=== PATIENT | female | born 1960 | race Caucasian/White ===

== ENCOUNTER → 2016-12-02 | Outpatient (CLI) | payer OTHER | END | disposition home or self-care (01) | LOC: C.LABSPEC 14:03 | PROVIDERS: ATTEND Physician Assistant | DX: N89.8 Other specified noninflammatory disorders of vagina (principal) ==

== ENCOUNTER → 2016-12-30 | Outpatient (CLI) | payer OTHER | END | disposition home or self-care (01) | LOC: C.PAPS 10:18 | PROVIDERS: ATTEND Obstetrics & Gynecology | DX: Z12.4 Encounter for screening for malignant neoplasm of cervix (principal); R87.616 Satisfactory cervical smear but lacking transformation zone ==

== ENCOUNTER 2017-10-14 10:17 | Observation (INO) | payer OTHER ==
[2017-10-14] VITALS (14 sets, daily range): BP systolic 99–146; BP diastolic 46–84; PULSE 67–90; TEMP 36.4–36.8; O2SAT 100; Ht 149.9 cm; Wt 48.0 kg
[~2017-10-14] VITALS: Ht 149.9 cm; Wt 48.0 kg
[2017-10-14] MEDS ORDERED: ONDANSETRON INJ 2 MG/ML 2 ML VIAL ONE ×3 (10:25→19:49)
[2017-10-14] MEDS ORDERED: MoRPHine SULFATE 10 MG/ML CARP/VIAL ONE (10:25)
[2017-10-14] MEDS ORDERED: KETOROLAC TROMETHAMINE 60 MG/2 ML VIAL IV STA (11:04)
[2017-10-14] MEDS ORDERED: ONDANSETRON INJ 2 MG/ML 2 ML VIAL IV STA (12:05)
[2017-10-14] MEDS ORDERED: HYDROmorphone INJ 0.5 MG/0.5 ML SYR IV STA (12:05)
--- NOTE | 2017-10-14 12:26 | DIAGNOSTIC IMAGING REPORT ---
R TIBIA/FIBULA 2 VIEWS ROUTINE, R FEMUR 2 VIEWS ROUTINE, R KNEE 1 OR 2 VIEWS ROUTINE HISTORY: 57 years-old Female fall previous surgery on that acute right leg pain status post fall COMPARISON: Pelvis radiograph of same day TECHNIQUE: 1 view of the right femur, 1 view of the right knee and 2 views of the right tibia and fibula FINDINGS: FEMUR: Bones appear mildly demineralized. Moderate general changes of the right hip. Comminuted displaced fracture of the distal femur is only partially imaged. KNEE: Acute comminuted displaced and angulated fracture of the distal femoral metaphysis is noted with apex volar angulation of 41 degrees, displacement posteriorly of 11 mm and apposition of fracture fragments of 2.6 cm. Moderate soft tissue swelling with large joint effusion. Degenerative changes about the knee are seen. Study is limited secondary to single lateral projection. TIBIA/FIBULA: Plate and screw fusion hardware of the proximal tibia is noted without definite acute fracture or dislocation. Study is limited on this single view only. IMPRESSION: 1. Limited study with only lateral views of the right lower extremity obtained. 2. Comminuted, angulated and displaced fracture of the distal femoral metaphysis as above. Moderate associated soft tissue swelling with large joint effusion. 3. Osteopenic appearance of the bones. The above report was generated using voice recognition software. It may contain grammatical, syntax or spelling errors. Electronically signed by: Peter Khalil M.D. 10/14/2017 12:25 PM Dictated Date/Time: 10/14/2017 12:20 PM
--- NOTE | 2017-10-14 12:26 | DIAGNOSTIC IMAGING REPORT ---
PELVIS 1 OR 2 VIEW ROUTINE CLINICAL HISTORY: Pelvic pain status post trauma COMPARISON STUDY: May 2010 FINDINGS: The study is markedly rotated. No fractures are visualized the provided projection. IMPRESSION: Markedly limited study from a positioning standpoint. No fractures are visualized. Electronically signed by: Carlos Carroll M.D. 10/14/2017 12:25 PM Dictated Date/Time: 10/14/2017 12:25 PM
[2017-10-14 13:40] LABS: BASO % 0.1 %; BASO ABS # 0.01 K/uL (0-0.2); EOS % 0.1 %; EOS ABS # 0.01 K/uL (0-0.5); HEMATOCRIT 37.5 % (37-47); HEMOGLOBIN 12.8 g/dL (12.0-16.0); IG# 0.06 K/uL (0.00-0.02); LYMPH % 5.1 %; LYMPH ABS # 0.77 K/uL (1.2-3.4); MEAN CELL VOLUME 92.1 fL (80-100); MEAN CORPUSCULAR HEMOGLOBIN 31.4 pg (25-34); MEAN CORPUSCULAR HGB CONC 34.1 g/dl (32-36); MONO % 3.8 %; MONO ABS # 0.57 K/uL (0.11-0.59); NEUT % 90.5 %; NEUT ABS # 13.63 K/uL (1.4-6.5); PLATELET COUNT 195 K/uL (130-400); RED CELL DISTRIBUTION WIDTH CV 12.4 % (11.5-14.5); RED CELL DISTRIBUTION WIDTH SD 42.1 fL (36.4-46.3); WHITE BLOOD COUNT 15.05 K/uL (4.8-10.8)
[2017-10-14 13:48] LABS: PTT PATIENT 23.8 SECONDS (21.0-31.0)
[2017-10-14] MEDS ORDERED: MoRPHine SULFATE 4 MG/ML 1 ML CARP\\VIAL IV STA (13:48)
[2017-10-14 14:02] LABS: CALCIUM 8.9 mg/dl (8.5-10.1); CREATININE 0.79 mg/dl (0.60-1.20); POTASSIUM 3.4 mmol/L (3.5-5.1)
[2017-10-14] MEDS ORDERED: PROPOFOL IV EMULSION 10 MG/ML 20 ML VIAL IV ONE ×3 (14:07→16:33)
[2017-10-14] MEDS ORDERED: MoRPHine SULFATE 2 MG/ML CARP ONE (14:16)
[2017-10-14] MEDS ORDERED: FENTANYL CITRATE INJ 50 MCG/1 ML 2 ML VIAL ONE ×3 (14:23→16:33)
[2017-10-14] MEDS ORDERED: FENTANYL CITRATE INJ 50 MCG/1 ML 2 ML VIAL IV ONE (14:30)
--- NOTE | 2017-10-14 14:49 | DIAGNOSTIC IMAGING REPORT ---
R KNEE 1 OR 2 VIEWS ROUTINE CLINICAL HISTORY: Distal femoral fracture. COMPARISON: 10/14/2017 DISCUSSION: There is a comminuted fracture of the distal femur. The distal fragment is posterior displaced x 14 mm. There is no significant angulation visualized on the lateral projection. There is a lipohemarthrosis. Old postsurgical changes involve the proximal tibia. IMPRESSION: Improved alignment of the comminuted distal femoral fracture status post reduction Electronically signed by: Carlos Carroll M.D. 10/14/2017 2:47 PM Dictated Date/Time: 10/14/2017 2:46 PM
--- NOTE | 2017-10-14 14:50 | DIAGNOSTIC IMAGING REPORT ---
R TIBIA/FIBULA 2 VIEWS ROUTINE HISTORY: 57 years-old Female s/p right leg reduction AP only acute right femur fracture status post reduction COMPARISON: Right femur and right tibia/fibula radiographs of same day TECHNIQUE: Single AP view of the right tibia/fibula FINDINGS: External metallic cast obscures fine bony detail. Lateral plate and screw fusion hardware of the proximal tibia is noted without evidence of hardware complication. The bones appear mildly demineralized. Degenerative changes are noted about the knee. The previously described distal femoral fracture is outside the [id number]. IMPRESSION: No acute fracture identified. The above report was generated using voice recognition software. It may contain grammatical, syntax or spelling errors. Electronically signed by: Peter Khalil M.D. 10/14/2017 2:48 PM Dictated Date/Time: 10/14/2017 2:47 PM
--- NOTE | 2017-10-14 14:50 | DIAGNOSTIC IMAGING REPORT ---
R FEMUR 2 VIEWS ROUTINE CLINICAL HISTORY: 57 years-old Female presenting with s/p reduction AP only. TECHNIQUE: Three limited frontal views of the right femur were obtained. COMPARISON: 10/14/2017 at 11:53 AM. FINDINGS: Limited anteroposterior view of the distal right femoral metaphyseal fracture appears unchanged. Extensive internal fixation of the right tibia. Overlying support device are slightly degrades underlying osseous detail. Right hip joint remains congruent. IMPRESSION: No change in apparent alignment on limited AP views. Electronically signed by: Noam Epperson M.D. 10/14/2017 2:49 PM Dictated Date/Time: 10/14/2017 2:47 PM
[2017-10-14] MEDS ORDERED: MoRPHine SULFATE 4 MG/ML 1 ML CARP\\VIAL IM PRN (15:15)
--- NOTE | 2017-10-14 16:07 | DIAGNOSTIC IMAGING REPORT ---
R LOWER EXTREMITY WITHOUT CT DOSE: 271.61 mGy.cm HISTORY: Trauma. Fracture. distal femur fracture TECHNIQUE: Multiaxial CT images of the distal right femur and knee were performed and reformatted in the sagittal and coronal plane without the use of contrast. A dose lowering technique was utilized adhering to the principles of ALARA. COMPARISON: Routine images 10/14/2017 FINDINGS: Moderate generalized soft tissue edema. Small joint effusion with fat fluid level. Comminuted fracture distal femoral metaphysis. The distal aspect of the humeral shaft is displaced posteriorly 1 cm in relation to the more proximal. There is a be a slight degree of bony impaction. This is estimated at 4 mm. Moderate angulation is present with posterior angulation estimated at 22 degrees. Fracture extends to the lateral femoral condyle. This extends to the articular services with a slight bony step-off of 3 mm. There is nondisplaced cortical extension to the intercondylar notch. There are findings of a prior high tibial osteotomy. The lateral tibial plateau is discontinuous which is of uncertain age. IMPRESSION: 1. Comminuted fracture distal femoral metaphysis extending to the intercondylar notch and lateral femoral condyle. 2. Estimated impaction is approximately 4 mm with evidence for posterior angulation at the primary fracture site of 22 degrees. 3. Fracture extends to the lateral femoral condyle where there appears to be at least one and possibly 2 small linear intervals components of the articular surface. 4. Fracture to the intercondylar notch is essentially nondisplaced. 5. Irregularity and moderate deformity of the lateral tibial plateau which potentially is pre-existing. 6. Evidence for a prior high tibial osteotomy. The above report was generated using voice recognition software. It may contain grammatical, syntax or spelling errors. Electronically signed by: Melvin Pimentel M.D. 10/14/2017 4:05 PM Dictated Date/Time: 10/14/2017 3:57 PM
[2017-10-14] MEDS ORDERED: KETAMINE HCL INJ 50 MG/ML 10 ML VIAL ONE (16:33)
[2017-10-14] MEDS ORDERED: LIDOCAINE 2% 20 MG/ML 5ML SYR IV ONE (16:33)
[2017-10-14] MEDS ORDERED: MIDAZOLAM HCL 1 MG/ML 2ML VIAL ONE (16:33)
[2017-10-14] MEDS ORDERED: CEFAZOLIN SOD 2000MG/15 ML IV PUSH IV ONE (16:39)
[2017-10-14] MEDS ORDERED: BACITRACIN 50000 UNIT VIAL ONE (17:02)
--- NOTE | 2017-10-14 17:08 | EMERGENCY ROOM VISIT NOTE ---
History Report prepared by Ivan: Pamela Mcqueen Under the Supervision of: Dr. Patel Richard M.D. First contact with patient: 10:42 Chief Complaint: FALL Stated Complaint: FALL/LEG PAIN History of Present Illness The patient is a 57 year old female who presents to the Emergency Room with complaints of persistent right leg pain starting around 0900. She presents to the ED by EMS. She received morphine and Zofran in route. The patient slipped and fell on the ice today. She injured her right leg. She denies any head injury or LOC. She denies having any neck pain, back pain, or pain elsewhere. She had surgery on her right leg in June 2016. Source of History: patient Onset: 0900 Position: leg (right) Quality: other (pain) Timing: other (persistent) Associated Symptoms: No LOC, No neck pain, No back pain Review of Systems See HPI for pertinent positives and negatives. A total of ten systems were reviewed and were otherwise negative. Past Medical & Surgical Medical Problems: (1) Femur fracture, right (2) Mitral valve prolapse Family History Cancer Seizures Social History Smoking Status: Never Smoker Alcohol Use: occasionally Drug Use: none Occupation Status: employed Current/Historical Medications No Active Prescriptions or Reported Meds Allergies Coded Allergies: Codeine (Unverified Allergy, Unknown, UNKNOWN, 07/03/15) Physical Exam Vital Signs Date Time Temp Pulse Resp B/P (MAP) Pulse Ox O2 Delivery O2 Flow Rate FiO2 10/14/17 16:35 37.1 16 107/66 (80) 95 Room Air 10/14/17 15:42 90/53 10/14/17 15:36 106/ 10/14/17 15:36 83 20 122/69 98 Room Air 10/14/17 15:32 76 99 10/14/17 15:20 122/69 10/14/17 15:17 83 97 10/14/17 15:15 120/75 10/14/17 15:10 120/65 10/14/17 15:06 101/70 10/14/17 15:02 78 9 97 10/14/17 15:00 36.8 80 18 101/70 100 Room Air 10/14/17 15:00 124/76 10/14/17 14:55 119/74 10/14/17 14:55 36.8 75 18 119/74 100 Room Air 2.0 10/14/17 14:50 126/74 10/14/17 14:50 36.8 82 18 126/75 100 Room Air 2.0 10/14/17 14:47 83 20 100 10/14/17 14:45 123/74 10/14/17 14:45 36.8 79 18 123/74 100 Room Air 10/14/17 14:41 123/75 10/14/17 14:40 36.8 78 20 123/75 100 Room Air 10/14/17 14:35 125/75 10/14/17 14:32 79 24 100 10/14/17 14:30 77 18 125/75 100 Nasal Cannula 2.0 10/14/17 14:30 124/71 10/14/17 14:26 105/46 10/14/17 14:25 76 18 105/46 100 Nasal Cannula 2.0 10/14/17 14:22 86 18 107/62 100 Room Air 10/14/17 14:21 107/62 10/14/17 14:17 85 9 100 10/14/17 14:16 125/79 10/14/17 14:12 123/67 10/14/17 14:02 80 15 96 10/14/17 13:48 87 18 101/60 94 Room Air 10/14/17 13:47 82 16 96 10/14/17 13:32 73 12 95 10/14/17 13:19 75 10/14/17 13:17 73 14 91 10/14/17 13:02 70 14 96 10/14/17 12:47 64 16 95 10/14/17 12:32 64 13 98 10/14/17 12:17 62 13 100 10/14/17 12:16 63 18 101/60 100 Room Air 10/14/17 12:16 101/60 10/14/17 12:07 74/47 10/14/17 11:17 73 16 100 10/14/17 11:02 79 19 100 10/14/17 10:47 75 18 98 10/14/17 10:32 88 21 100 10/14/17 10:31 85 10/14/17 10:29 36.6 87 20 118/90 95 Room Air 10/14/17 10:24 118/90 Physical Exam Physical Exam GENERAL: She is oriented to person, place, and time. She appears well- developed and well-nourished. She does not appear distressed. ____ HENT: Exam performed. Head: Normocephalic and atraumatic. Right Ear: External ear normal. No mastoid tenderness. Left Ear: External ear normal. No mastoid tenderness. Mouth/Throat: The oropharynx is clear and moist. No trismus in the jaw. No dental abscesses or uvula swelling. No oropharyngeal exudate or tonsillar abscesses. ____ EYES: Conjunctivae and EOM are normal. Pupils are equal, round, and reactive to light. Right eye exhibits no discharge. Left eye exhibits no discharge. No scleral icterus. ____ NECK: Normal range of motion. Neck supple. No JVD present. No spinous process tenderness present. No carotid bruit present. No rigidity. No tracheal deviation and normal range of motion present. No Brudzinski's sign and no Kernig 's sign noted. ____ CV: Normal rate, regular rhythm, normal heart sounds and intact distal pulses. There is no peripheral edema. Palpable radial pulses bue. ____ PULM/CHEST: Effort normal and breath sounds normal. No respiratory distress. No stridor. She has no wheezes. She has no rales. Chest Wall: She exhibits no tenderness. ____ ABD: The abdomen is soft. Bowel sounds are normal. She has no distension. No mass is present. There is no tenderness. There is no rebound, no guarding, no Gandhi's sign and no tenderness at McBurney's point. Rovsig negative MUSC/SKEL: RLE: Extreme pain on palpation over the RLE, pelvis, knee, distal femur, tibia fibula, and ankle. ROM is limited secondary to pain. Palpable DP and PT pulses in the bilateral LE. LLE: No pain on palpation. Pelvis stable. No C, T, or L-spine tenderness. LYMPH: No cervical adenopathy. ____ NEURO: She is alert and oriented to person, place, and time. No cranial nerve deficit or sensory deficit.GCS eye subscore is 4. GCS verbal subscore is 5. GCS motor subscore is 6. SKIN: Skin is warm and dry. She is not diaphoretic. ____ PSYCH: She has a normal mood and affect. Her behavior is normal. Judgment and thought content normal. ____ Medical Decision & Procedures ER Provider Diagnostic Interpretation: Xray results as stated below per my and radiologist interpretation: R TIBIA/FIBULA 2 VIEWS ROUTINE, R FEMUR 2 VIEWS ROUTINE, R KNEE 1 OR 2 VIEWS ROUTINE HISTORY: 57 years-old Female fall previous surgery on that acute right leg pain status post fall COMPARISON: Pelvis radiograph of same day TECHNIQUE: 1 view of the right femur, 1 view of the right knee and 2 views of the right tibia and fibula FINDINGS: FEMUR: Bones appear mildly demineralized. Moderate general changes of the right hip. Comminuted displaced fracture of the distal femur is only partially imaged. KNEE: Acute comminuted displaced and angulated fracture of the distal femoral metaphysis is noted with apex volar angulation of 41 degrees, displacement posteriorly of 11 mm and apposition of fracture fragments of 2.6 cm. Moderate soft tissue swelling with large joint effusion. Degenerative changes about the knee are seen. Study is limited secondary to single lateral projection. TIBIA/FIBULA: Plate and screw fusion hardware of the proximal tibia is noted without definite acute fracture or dislocation. Study is limited on this single view only. IMPRESSION: 1. Limited study with only lateral views of the right lower extremity obtained. 2. Comminuted, angulated and displaced fracture of the distal femoral metaphysis as above. Moderate associated soft tissue swelling with large joint effusion. 3. Osteopenic appearance of the bones. The above report was generated using voice recognition software. It may contain grammatical, syntax or spelling errors. Electronically signed by: Peter Khalil M.D. 10/14/2017 12:25 PM Dictated Date/Time: 10/14/2017 12:20 PM PELVIS 1 OR 2 VIEW ROUTINE CLINICAL HISTORY: Pelvic pain status post trauma COMPARISON STUDY: May 2010 FINDINGS: The study is markedly rotated. No fractures are visualized the provided projection. IMPRESSION: Markedly limited study from a positioning standpoint. No fractures are visualized. Electronically signed by: Carlos Carroll M.D. 10/14/2017 12:25 PM Dictated Date/Time: 10/14/2017 12:25 PM R TIBIA/FIBULA 2 VIEWS ROUTINE HISTORY: 57 years-old Female s/p right leg reduction AP only acute right femur fracture status post reduction COMPARISON: Right femur and right tibia/fibula radiographs of same day TECHNIQUE: Single AP view of the right tibia/fibula FINDINGS: External metallic cast obscures fine bony detail. Lateral plate and screw fusion hardware of the proximal tibia is noted without evidence of hardware complication. The bones appear mildly demineralized. Degenerative changes are noted about the knee. The previously described distal femoral fracture is outside the [id number]. IMPRESSION: No acute fracture identified. The above report was generated using voice recognition software. It may contain grammatical, syntax or spelling errors. Electronically signed by: Peter Khalil M.D. 10/14/2017 2:48 PM Dictated Date/Time: 10/14/2017 2:47 PM R KNEE 1 OR 2 VIEWS ROUTINE CLINICAL HISTORY: Distal femoral fracture. COMPARISON: 10/14/2017 DISCUSSION: There is a comminuted fracture of the distal femur. The distal fragment is posterior displaced x 14 mm. There is no significant angulation visualized on the lateral projection. There is a lipohemarthrosis. Old postsurgical changes involve the proximal tibia. IMPRESSION: Improved alignment of the comminuted distal femoral fracture status post reduction Electronically signed by: Carlos Carroll M.D. 10/14/2017 2:47 PM Dictated Date/Time: 10/14/2017 2:46 PM R FEMUR 2 VIEWS ROUTINE CLINICAL HISTORY: 57 years-old Female presenting with s/p reduction AP only. TECHNIQUE: Three limited frontal views of the right femur were obtained. COMPARISON: 10/14/2017 at 11:53 AM. FINDINGS: Limited anteroposterior view of the distal right femoral metaphyseal fracture appears unchanged. Extensive internal fixation of the right tibia. Overlying support device are slightly degrades underlying osseous detail. Right hip joint remains congruent. IMPRESSION: No change in apparent alignment on limited AP views. Electronically signed by: Noam Epperson M.D. 10/14/2017 2:49 PM Dictated Date/Time: 10/14/2017 2:47 PM Laboratory Results 10/14/17 13:29 Red Blood Count 4.07, Mean Corpuscular Volume 92.1, Mean Corpuscular Hemoglobin 31.4, Mean Corpuscular Hemoglobin Concent 34.1, Mean Platelet Volume 9.0, Neutrophils (%) (Auto) 90.5, Lymphocytes (%) (Auto) 5.1, Monocytes (%) (Auto) 3.8, Eosinophils (%) (Auto) 0.1, Basophils (%) (Auto) 0.1, Neutrophils # (Auto) 13.63, Lymphocytes # (Auto) 0.77, Monocytes # (Auto) 0.57, Eosinophils # (Auto) 0.01, Basophils # (Auto) 0.01 10/14/17 13:29 Test 10/14/17 13:29 White Blood Count 15.05 K/uL (4.8-10.8) Red Blood Count 4.07 M/uL (4.2-5.4) Hemoglobin 12.8 g/dL (12.0-16.0) Hematocrit 37.5 % (37-47) Mean Corpuscular Volume 92.1 fL (80-100) Mean Corpuscular Hemoglobin 31.4 pg (25-34) Mean Corpuscular Hemoglobin Concent 34.1 g/dl (32-36) Platelet Count 195 K/uL (130-400) Mean Platelet Volume 9.0 fL (7.4-10.4) Neutrophils (%) (Auto) 90.5 % Lymphocytes (%) (Auto) 5.1 % Monocytes (%) (Auto) 3.8 % Eosinophils (%) (Auto) 0.1 % Basophils (%) (Auto) 0.1 % Neutrophils # (Auto) 13.63 K/uL (1.4-6.5) Lymphocytes # (Auto) 0.77 K/uL (1.2-3.4) Monocytes # (Auto) 0.57 K/uL (0.11-0.59) Eosinophils # (Auto) 0.01 K/uL (0-0.5) Basophils # (Auto) 0.01 K/uL (0-0.2) RDW Standard Deviation 42.1 fL (36.4-46.3) RDW Coefficient of Variation 12.4 % (11.5-14.5) Immature Granulocyte % (Auto) 0.4 % Immature Granulocyte # (Auto) 0.06 K/uL (0.00-0.02) Prothrombin Time 10.9 SECONDS (9.0-12.0) Prothromb Time International Ratio 1.0 (0.9-1.1) Activated Partial Thromboplast Time 23.8 SECONDS (21.0-31.0) Partial Thromboplastin Ratio 0.9 Anion Gap 6.0 mmol/L (3-11) Est Creatinine Clear Calc Drug Dose 54.3 ml/min Estimated GFR () 97.0 Estimated GFR (Non- 83.7 BUN/Creatinine Ratio 15.8 (10-20) Calcium Level 8.9 mg/dl (8.5-10.1) Laboratory results reviewed by me Medications Administered Medications (Trade) Dose Ordered Sig/[facility] Route Start Time Stop Time Status Last Admin Dose Admin Ketorolac Tromethamine (Toradol Inj) 15 mg ONE STAT IV 10/14/17 11:04 10/14/17 11:06 DC 10/14/17 11:10 15 MG Hydromorphone HCl (Dilaudid Inj) 0.5 mg NOW STAT IV 10/14/17 12:05 10/14/17 12:08 DC 10/14/17 12:15 0.5 MG Ondansetron HCl (Zofran Inj) 4 mg NOW STAT IV 10/14/17 12:05 10/14/17 12:08 DC 10/14/17 12:14 4 MG Morphine Sulfate (MoRPHine SULFATE INJ) 2 mg STK-MED ONCE .ROUTE 10/14/17 14:16 10/14/17 14:17 DC 10/14/17 14:20 2 MG Fentanyl Citrate (Fentanyl Inj) 100 mcg STK-MED ONCE .ROUTE 10/14/17 14:23 10/14/17 14:24 DC 10/14/17 14:25 100 MCG Bacitracin (Bacitracin Inj) 50,000 units STK-MED ONCE .ROUTE 10/14/17 17:02 10/14/17 17:03 DC 10/14/17 17:02 50,000 UNITS Procedure Procedural Sedation Indication closed reduction of distal femur fracture to be performed by orthopedics. Total time: 46 minutes. Written consent was obtained after the risks and benefits were explained to the patient, including, but not limited to aspiration, allergic reaction, breathing difficulties, cardiac complications, vomiting, pain, event recall, bleeding, and /or infection. Pre-sedation examination and paperwork completed. The patient was on 100% oxygen via NRB prior to the procedure. Continous end tidal CO2 monitoring, pulse oximetry, and cardiac monitoring were utilized. Suction, airway equipment, medications, respiratory equipment, and appropriate personnel were prepared prior to the initiation of the procedure. A time out was taken. Sedation was achieved utilizing 40 mg bolus of propofol and 2 repeat 10 mg doses. After I observed the patient had reached the appropriate level of sedation the main procedure was performed without complication. Sedation was discontinued and the monitoring continued. The patient recovered quickly from the effects of the medication without complication or adverse event. ED Course 1048: The patient was evaluated in room B3A. A complete history and physical exam was performed. 1104: Toradol Inj 15 mg IV. 1205: Zofran Inj 4 mg IV, Dilaudid Inj 0.5 mg IV. 1302: X-rays show distal femur fracture I discussed the patient's case with Dr. Zhu, [facility] orthopedic surgery. He will come evaluate the patient. 1345: Orthopod is here evaluating the patient. 1356: Dr. Zhu would like to perform a reduction under conscious sedation. 1408: Reduction was performed under conscious sedation by orthopedics. I monitored the airway and managed sedation. See the procedure note above and nursing notes for details and timeline. 1530: The patient will be admitted to the orthopedics team. Medical Decision Xray shows acute fracture of distal femur. Ortho was consulted, came and evaluated the patient. Ortho says they will admit the patient. They request conscious sedation to reduce the leg. Reduction was performed by orthopedics. Patient tolerated sedation well, see nursing and procedure notes. Patient was admitted to orthopedics. Medication Reconcilliation Current Medication List: was personally reviewed by me Blood Pressure Screening Patient's blood pressure: Normal blood pressure Blood pressure disposition: Did not require urgent referral Consults Time Called: 1252 Consulting Physician: Dr. Zhu, [facility] orthopedic surgery Returned Call: 1302 I discussed the patient's case with him. He will come evaluate the patient. Impression Primary Impression: Fracture of distal femur Scribe Attestation The scribe's documentation has been prepared under my direction and personally reviewed by me in its entirety. I confirm that the note above accurately reflects all work, treatment, procedures, and medical decision making performed by me. The chart was completed utilizing [employer] voice recognition software. Grammatical errors, random word insertions, pronoun errors, and incomplete sentences are an occasional consequence of this system due to software limitations, ambient noise, and hardware issues. Any formal questions or concerns about the content, text, or information contained within the body of this dictation should be directly addressed to the physician for clarification. Departure Information Dispostion Being Evaluated By Surgeon Prescriptions No Active Prescriptions or Reported Meds Referrals Juancho Manuel M.D.([facility]) (PCP) Patient Instructions My [facility]
[2017-10-14] MEDS ORDERED: EpHEDrine SULFATE 50MG/5ML SYR ONE (17:30)
[2017-10-14] MEDS ORDERED: DEXAMETHASONE SOD INJ 4 MG/ML VIAL ONE (17:30)
[2017-10-14] MEDS ORDERED: PHENYLEPHRINE HCL INJ 10 MG/ML VIAL ONE (17:30)
--- NOTE | 2017-10-14 17:39 | HISTORY & PHYSICAL EXAMINATION ---
DATE OF ADMISSION: 10/14/[address] Zhu's. HISTORY OF PRESENT ILLNESS: The patient is relatively healthy 57-year-old female who slipped and fell on some ice sustaining a closed distal femoral fracture with intercondylar split. She had a CT scan which reveals the intercondylar nature with minimal displacement and the shaft displaced with some comminution. She also has a history of having a proximal tibia injury on the same side when a horse fell on her. PAST MEDICAL HISTORY: Remarkable for mitral valve prolapse, cervical strain, lumbar sprain lumbar strain, right femur fracture. AMBULATORY MEDICATIONS: None reported. ALLERGIES: TO CODEINE WHICH PRODUCES NAUSEA. REVIEW OF SYSTEMS: Reveals no chest pain, shortness of breath, fever, chills, nausea, vomiting, headache or other bony parts that are bothering her. PHYSICAL EXAMINATION: HEENT: Without any trauma. NEUROLOGIC: Neurovascular check both upper and lower extremities within normal limits, slight reverse lower extremity on the right, based on previous trauma. She notes that it has not changed color. Distal sensory and motor exam in the splint is normal. There is no sign of compartment syndrome. EXTREMITIES: Hip exam is benign bilaterally. ABDOMEN: Soft, nontender. X-RAYS: Again revealed a comminuted intercondylar split distal femur fracture. All other areas reveal proximal tibia, status post ORIF, no other injuries noted in the hip or pelvis. LABORATORY WORK: Reveals white count of 15,000 related to stress, hematocrit 37.5. INR is normal. Chemistry is normal. ASSESSMENT: Overall, the patient has an isolated distal femur fracture with intercondylar split and the metadiaphyseal injury. Most amenable to plating based on the intercondylar split and the comminution. At this point, we will make arrangements for this. She has been n.p.o. since roughly 8:30 this morning, so we will proceed to surgery YURI. Consent was obtained. All risks and benefits were described on the list. She understands this. We will follow up for surgery YURI. SHAE
[2017-10-14] MEDS ORDERED: HYDROmorphone INJ 2 MG/ML SYR/VIAL ONE (19:11)
--- NOTE | 2017-10-14 19:23 | [facility] Post Operative Brief Note ---
Immediate Operative Summary Operative Date Oct 14, 2017. Pre-Operative Diagnosis Comminuted intercondylar split distal femur fracture Post-Operative Diagnosis Same Procedure(s) Performed Open Reduction Internal Fixation Distal Femur Fracture Right, with application of Demineralized bone matrix. Surgeon Dr Nikita Allen Chief Meteorologist Surgeon(s) Jaylon Gorman Fellow Estimated Blood Loss 200ml Findings Consistent with Post-Op Diagnosis Fluids (cc crystalloids) 1700cc Specimens none per surgeon Drains None Anesthesia Type General Complication(s) none Disposition Disposition: Recovery Room / PACU
--- NOTE | 2017-10-14 19:34 | DIAGNOSTIC IMAGING REPORT ---
R KNEE 1 OR 2 VIEWS CLINICAL HISTORY: ORIF DISTAL FEMUR FRACTURE RIGHT SIDE trauma. Fracture. COMPARISON: Same date DISCUSSION: Image intensifier utilized for open reduction internal fixation of the comminuted fracture of the distal femur. A plate is present. Multiple orthogonal screws are noted. Bone grafting material appears to be present. There is no evidence for soft tissue swelling. IMPRESSION: Image intensifier utilized for intraoperative open reduction internal fixation of a comminuted fracture of the distal femur. The above report was generated using voice recognition software. It may contain grammatical, syntax or spelling errors. Electronically signed by: Melvin Pimentel M.D. 10/14/2017 7:32 PM Dictated Date/Time: 10/14/2017 7:31 PM
--- NOTE | 2017-10-14 19:37 | Anesthesiology Progress Note ---
Anesthesia Post Op Note Date & Time Oct 14, 2017 at 19:37 Vital Signs Pain Intensity: 3.0 Vital Signs Past 12 Hours Date Time Temp Pulse Resp B/P (MAP) Pulse Ox O2 Delivery O2 Flow Rate FiO2 10/14/17 16:35 37.1 16 107/66 (80) 95 Room Air 10/14/17 15:42 90/53 10/14/17 15:36 106/ 10/14/17 15:36 83 20 122/69 98 Room Air 10/14/17 15:32 76 99 10/14/17 15:20 122/69 10/14/17 15:17 83 97 10/14/17 15:15 120/75 10/14/17 15:10 120/65 10/14/17 15:06 101/70 10/14/17 15:02 78 9 97 10/14/17 15:00 36.8 80 18 101/70 100 Room Air 10/14/17 15:00 124/76 10/14/17 14:55 119/74 10/14/17 14:55 36.8 75 18 119/74 100 Room Air 2.0 10/14/17 14:50 126/74 10/14/17 14:50 36.8 82 18 126/75 100 Room Air 2.0 10/14/17 14:47 83 20 100 10/14/17 14:45 123/74 10/14/17 14:45 36.8 79 18 123/74 100 Room Air 10/14/17 14:41 123/75 10/14/17 14:40 36.8 78 20 123/75 100 Room Air 10/14/17 14:35 125/75 10/14/17 14:32 79 24 100 10/14/17 14:30 77 18 125/75 100 Nasal Cannula 2.0 10/14/17 14:30 124/71 10/14/17 14:26 105/46 10/14/17 14:25 76 18 105/46 100 Nasal Cannula 2.0 10/14/17 14:22 86 18 107/62 100 Room Air 10/14/17 14:21 107/62 10/14/17 14:17 85 9 100 10/14/17 14:16 125/79 10/14/17 14:12 123/67 10/14/17 14:02 80 15 96 10/14/17 13:48 87 18 101/60 94 Room Air 10/14/17 13:47 82 16 96 10/14/17 13:32 73 12 95 10/14/17 13:19 75 10/14/17 13:17 73 14 91 10/14/17 13:02 70 14 96 10/14/17 12:47 64 16 95 10/14/17 12:32 64 13 98 10/14/17 12:17 62 13 100 10/14/17 12:16 63 18 101/60 100 Room Air 10/14/17 12:16 101/60 10/14/17 12:07 74/47 10/14/17 11:17 73 16 100 10/14/17 11:02 79 19 100 10/14/17 10:47 75 18 98 10/14/17 10:32 88 21 100 10/14/17 10:31 85 10/14/17 10:29 36.6 87 20 118/90 95 Room Air 10/14/17 10:24 118/90 Notes Mental Status: alert / awake / arousable, participated in evaluation Pt Amnestic to Procedure: Yes Nausea / Vomiting: adequately controlled Pain: adequately controlled Airway Patency, RR, SpO2: stable & adequate BP & HR: stable & adequate Hydration State: stable & adequate Anesthetic Complications: no major complications apparent
[2017-10-14] MEDS ORDERED: HYDROmorphone INJ 1 MG/ML SYR ONE (19:44)
[2017-10-14] MEDS ORDERED: PHENYLEPHRINE 100MCG/ML 5ML SYR IV PRN (19:45)
[2017-10-14] MEDS ORDERED: EpHEDrine SULFATE INJ 50 MG/ML AMP IV PRN (19:45)
[2017-10-14] MEDS ORDERED: HYDROmorphone INJ 2 MG/ML SYR/VIAL IV PRN (19:45)
[2017-10-14] MEDS ORDERED: ATROPINE SULFATE 0.1 MG/ML 5ML SYR IV PRN (19:45)
[2017-10-14] MEDS ORDERED: ONDANSETRON INJ 2 MG/ML 2 ML VIAL IV PRN ×2 (19:45)
[2017-10-14] MEDS ORDERED: ACETAMINOPHEN 325 MG TAB PO PRN (19:45)
[2017-10-14] MEDS ORDERED: METOCLOPRAMIDE HCL INJ 5 MG/ML 2 ML VIAL IV PRN (19:45)
[2017-10-14] MEDS ORDERED: ALUMINUM/MAGNESIUM/SIMETH (MAALOX MAX) 30 ML UDC PO PRN (19:45)
[2017-10-14] MEDS ORDERED: BISACODYL 10 MG SUPP PR PRN (19:45)
[2017-10-14] MEDS ORDERED: MAGNESIUM HYDROXIDE SUSP 30 ML UDC PO PRN (19:45)
--- NOTE | 2017-10-14 19:50 | OPERATIVE REPORT ---
DATE OF OPERATION: 10/14/2017 SURGEON: Dr. Carrero. COMPUTER GAME TESTER: Vita. PREOPERATIVE DIAGNOSIS: Severe distal femur metadiaphyseal fracture with intercondylar split and articular comminution patellofemoral joint. POSTOPERATIVE DIAGNOSIS: Same. OPERATION PERFORMED: Open reduction internal fixation distal metadiaphyseal fracture with intercondylar split right femur with application of bone putty 10 mL. PERIOPERATIVE SITUATION: Medically cleared female who slipped and fell on the ice, has a history of having a severe fracture of her proximal tibia in the past. It is clear that she has osteopenia and will be worked up for that. Options were discussed with her in detail, consent obtained and we decided to proceed with open reduction internal fixation with plate and screws. PROCEDURE IN DETAIL: The patient appropriately identified, site verified, consent verified, 2 grams of Ancef confirmed as being given. The right lower extremity was prepped and draped in usual routine fashion. She had the old incision utilized proximal third and then extended up to thigh. It was a generous incision based on the fracture. Full-thickness flaps raised. IT band incised, stayed anterior to the peroneal nerve. The vastus lateralis was then lifted off the femur. The femur was markedly comminuted, markedly displaced. It was all curetted clean and then reduced, and then with multiple attempts, the plate was finally positioned in appropriate position distally and secured with temporary K-wires and then proximally with a whirlybird. This revealed good provisional position of the plate, so the plate was then secured with multiple locking and nonlocking screws with a 6-hole distal femoral plate. A total of 9 screws were utilized. Excellent fixation was obtained in the plate-screw combination. Multiple plane image revealed excellent alignment on the AP with slight lateral translation of the proximal shaft secondary to comminution, and on the lateral, it was in excellent position with just comminution noted anteriorly and posteriorly. We removed all of the flexion of the fragment. The wound was then copiously irrigated with Pulsavac with bacitracin and then bone putty placed in and around the fracture on the medial anterior side where all the comminution was. This was then closed with #1 and 0 Vicryl for the fascial layer, followed by 2-0 Vicryl for the subcutaneous layer and stainless steel clips for skin. Appropriate dressing applied, Dakota [place] with a splint. EBL was approximately 200 mL. Crystalloid approximately 1700 mL. SUMMARY OF IMPLANTS: As noted, 6-hole distal femoral plate with 9 screws. Bone putty as noted 15 mL total. It was 10 mL mix and 5 mL mix. Multiple plane image revealed acceptable reduction on AP and lateral planes. DVT prophylaxis will be with Coumadin. She will be strict nonweightbearing for at least 6 weeks. I attest to the content of the Intraoperative Record and any orders documented therein. Any exception s are noted below.
--- NOTE | 2017-10-14 20:15 | ORTHOPEDIC CONSULTATION ---
DATE OF CONSULTATION: 10/14/2017 CHIEF COMPLAINT: Right knee pain. HISTORY OF PRESENT ILLNESS: The patient is a 57-year-old female who slipped and fell injuring her right knee earlier today. One year ago, she has a history of a tibial plateau fracture treated in [place] after a horse fell on her. She is currently complaining of pain in the right knee. She denies numbness or tingling or other injury. She has no past medical history. REVIEW OF SYSTEMS: She has not had a bone health evaluation. She denies bleeding, blood clots, cancers, metal sensitivity, history of infection, lung, liver, kidney disease, diabetes, heart disease. PAST SURGICAL HISTORY: ORIF left tibial plateau. MEDICATIONS: She takes none. ALLERGIES: UNKNOWN ALLERGY TO CODEINE, but she tolerates morphine and Percocet. 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 PHYSICAL EXAMINATION: The right thigh, tibia, foot and ankle nontender. Significant tenderness right knee with flexion deformity. She has 5-/5 ankle and toe plantarflexion and dorsiflexion strength. She reports normal sensation in her foot. Her knee is swollen but otherwise the leg is not swollen or bruised. The skin is intact with minor abrasion over the anterior aspect of the knee. She has a well-healed anterolateral incision. Dorsalis pedis and posterior tibial pulses are 1+. Radiographs lateral views only show no evidence of acute injury to the femur and tibia. She does have an acute displaced distal femoral fracture. There is internal fixation in the proximal tibia. After conscious sedation, the right leg was reduced with gentle traction and extension and then was placed into a bulky [place] dressing. Thereafter, she had normal sensation and the identical sensory motor vascular examination. A 5-/5 ankle and toe plantar flexion and dorsiflexion strength. Normal sensation and 1+ dorsalis pedis and posterior tibial pulses. Post-reduction radiographs show AP views of the femur and tibia with no injury. Old internal fixation in the proximal tibia. On the knee, there is improved alignment, but a comminuted fracture of the distal femur. It is uncertain if there is any intraarticular extension. IMPRESSION: Right distal femur fracture. PLAN: Findings discussed. I recommend closed reduction and immobilization which is done. She will be admitted to the hospital. Ice, pain medication, elevation, nonweightbearing. Mechanical devices for DVT prophylaxis. She is added onto the OR schedule tomorrow for myself or one of my colleagues to do ORIF. She is educated about the injury and we reviewed the options. We had a discussion about surgical intervention. Obtain a CT scan of the knee to evaluate for further intra-articular extension. N.p.o. after midnight. LABORATORY DATA: Show a potassium of 3.4, otherwise within normal limits. PT/INR normal. White count 15, likely secondary to stress. Hemoglobin 13, hematocrit 37, platelet count is 195.
[2017-10-14] MEDS ORDERED: CEFTRIAXONE SOD INJ 2,000 MG in DEXTROSE 5% 50ML 50 ML IV ONE (21:00)
[2017-10-14] MEDS: SODIUM CHLORIDE 0.9% 1000ML 1,000 ML IV SCH (21:13)
[2017-10-14] MEDS ORDERED: IV FLUIDS COMPLETED PRN (21:15)
[2017-10-14] MEDS: DOCUSATE SODIUM 100 MG CAP PO SCH (22:16)
[2017-10-15] MEDS: OXYCODONE HCL IR 5 MG TAB (IMMEDIATE RELEASE) PO PRN ×4 (00:03→18:18)
[2017-10-15 03:36] VITALS: BP 96/58; PULSE 81; TEMP 36.5; O2SAT 97
[2017-10-15] MEDS: SODIUM CHLORIDE 0.9% 1000ML 1,000 ML IV SCH (04:11)
--- NOTE | 2017-10-15 04:31 | PROGRESS NOTE ---
DATE: 10/15/2017 SUBJECTIVE: Postop day #1 status post ORIF of complex distal supracondylar and intercondylar femur fracture, right lower extremity. At this point in time the patient is doing well. Denies chest pain, shortness of breath, fever, chills, nausea, vomiting, headache. Vital signs are stable. She is afebrile. Laboratory work is pending. Wound dressing clean, dry and intact. Splint intact. She was able to get up and void into the bedside commode. ASSESSMENT: Overall, doing well. PT, OT today. Social service consult today. Home if arrangements can be made for home and she is doing well later today. Coumadin per nomogram.
[2017-10-15] MEDS ORDERED: CEFAZOLIN SOD 2000MG/15 ML IV PUSH IV ONE (06:00)
--- NOTE | 2017-10-15 07:00 | PROGRESS NOTE ---
DATE: 10/15/2017 A.mAnish rounds orthopedic. She is doing well. She is sitting up comfortable. She has no issues. Pain is well managed with oral medications. Neurovascular check femoral sciatic nerve is normal. Wound dressing clean, dry and intact. Laboratory is pending. ASSESSMENT: Doing well, we will discharge today if social worker health services could make arrangements for her needs at home. We will give prescription for a walker and crutches as well as a prescription for oral pain medication which is Percocet 5/325 one p.o. q. 3 hours p.r.n. Follow up in 2 weeks. Keep present dressing in place until she returns to the office for staple removal.
--- NOTE | 2017-10-15 07:03 | DISCHARGE SUMMARY ---
CHIEF COMPLAINT: Right leg pain. HISTORY OF PRESENT ILLNESS: The patient slipped and fell on some ice and sustained a comminuted supracondylar intercondylar fracture of her right distal femur. She was admitted and taken to surgery within hours of her admission. Her hospital course has been uneventful. Her pain is well managed with oral medication. PAST MEDICAL HISTORY: Remarkable for mitral valve prolapse, spine strains. She has a previous right proximal tibia fracture. AMBULATORY MEDICATIONS: None reported. ALLERGIES: CODEINE WHICH PRODUCES NAUSEA. REVIEW OF SYSTEMS: Reveals no chest pain, shortness of breath, fever or chills. ASSESSMENT: Status post right distal femur fracture, supracondylar intercondylar has done well. We will discharge to home with social service assessment prior to that. She needs placement that is up to home health care social worker based on her needs. She can be discharged today to any location. We will discharge her on 4 mg of Coumadin starting tomorrow. She received a dose of 7.5 mg loading dose today. She should have INR checked once a week.
[2017-10-15 07:26] LABS: INR 1.1 (0.9-1.1)
[2017-10-15 07:43] VITALS: BP 99/55; PULSE 73; TEMP 36.7; O2SAT 99
[2017-10-15 07:51] LABS: HEMATOCRIT 26.1 % (37-47); HEMOGLOBIN 8.8 g/dL (12.0-16.0); MEAN CELL VOLUME 94.2 fL (80-100); MEAN CORPUSCULAR HEMOGLOBIN 31.8 pg (25-34); MEAN CORPUSCULAR HGB CONC 33.7 g/dl (32-36); MEAN PLATELET VOLUME 9.5 fL (7.4-10.4); PLATELET COUNT 184 K/uL (130-400); RED CELL DISTRIBUTION WIDTH CV 12.8 % (11.5-14.5); WHITE BLOOD COUNT 8.38 K/uL (4.8-10.8)
[2017-10-15] MEDS ORDERED: WARFARIN SOD 7.5 MG TAB PO SCH (08:30)
[2017-10-15] MEDS ORDERED: PANTOprazole SOD 40 MG TAB PO SCH (09:00)
[2017-10-15] MEDS ORDERED: MULTIVITAMIN TAB PO SCH (09:00)
[2017-10-15] MEDS: DOCUSATE SODIUM 100 MG CAP PO SCH (09:17)
[2017-10-15] MEDS: FERROUS GLUCONATE 324 MG TAB PO SCH ×3 (09:18→18:15)
--- NOTE | 2017-10-15 14:58 | Discharge Instructions ---
Discharge Instructions Date of Service Oct 15, 2017. Admission Reason for Admission: Femur Fracture, Right Discharge Discharge Diagnosis / Problem: Right Femur fracture Discharge Goals Goal(s): Decrease discomfort, Improve function, Increase independence, Improve nutritional status Activity Recommendations Activity Limitations: per Instructions/Follow-up section Lifting Limitations: until after follow-up appointment Exercise/Sports Limitations: none Shower/Bathe: keep incision dry Weightbearing Status: Right weightbearing (Noniweight bearing Right lower extremity ) . Instructions / Follow-Up Instructions / Follow-Up DIET: * Resume previous diet. MEDICATIONS: * Please take your prescriptions as instructed at your pre-op appointment and/ or see medication discharge instructions listed above. * If concerns develop, call your physician's office at . SPECIAL CARE INSTRUCTIONS: * Ice/Elevate as instructed. * Keep dressing clean, dry, intact. * Your surgical extremity may be discolored due to prepping agents used on the skin. A bluish-green tint is a normal variant and should not cause alarm. Call your doctor at [phone] if: * Temperature above 101 degrees * Pain not relieved by pain medicine ordered * There is increased drainage or redness from any incision * You have any unanswered questions, problems or concerns. FOLLOW UP VISIT: * If not already scheduled, please call the office at to schedule a follow-up appointment. Current Hospital Diet Patient's current hospital diet: Regular Diet Discharge Diet Recommended Diet: Regular Diet Procedures Procedures Performed: Open Reduction Internal Fixation Distal Femur Fracture Right, with application of Demineralized bone matrix. Pending Studies Studies pending at discharge: no Medical Emergencies . Who to Call and When: Medical Emergencies: If at any time you feel your situation is an emergency, please call 911 immediately. . Non-Emergent Contact Non-Emergency issues call your: Primary Care Provider Call Non-Emergent contact if: you have a fever, your pain is not controlled, your pain is worsening, wound has increased drainage . "Provider Documentation" section prepared by Jaylon Gorman. . VTE Core Measure Inpt VTE Proph given/why not?: Warfarin (Coumadin) [place] Drug Monitoring Program Search Results: no issues identified
[2017-10-15 15:19] VITALS: BP 110/69; PULSE 81; TEMP 36.7; O2SAT 100
[2017-10-15 17:01] VITALS: BP 110/69; PULSE 81; TEMP 36.7; O2SAT 100
== END 2017-10-15 20:07 | disposition home or self-care (01) ==
LOC: EDBD 10:17 → C.EDB 10:18 → C.MSN 15:06 → ENRESERV 15:38
PROVIDERS: ADMIT Physical Medicine & Rehabilitation Sports Medicine; ATTEND Physical Medicine & Rehabilitation Sports Medicine
DX: S72.461A Displaced supracondylar fracture with intracondylar extension of lower end of right femur, initial encounter for closed fracture (principal); W00.0XXA Fall on same level due to ice and snow, initial encounter; M85.80 Other specified disorders of bone density and structure, unspecified site; Z88.6 Allergy status to analgesic agent

== ENCOUNTER 2017-10-17 00:08 | Inpatient (IN) | payer OTHER ==
[~2017-10-17] VITALS: Ht 149.9 cm; Wt 48.2 kg
[2017-10-17] VITALS (18 sets, daily range): BP systolic 88–122; BP diastolic 48–65; PULSE 74–104; TEMP 37–39.2; O2SAT 96–100; Ht 149.9 cm; Wt 48.2 kg
[2017-10-17] MEDS ORDERED: SODIUM CHLORIDE 0.9% 1000ML 1,000 ML IV STA (00:26)
--- NOTE | 2017-10-17 00:30 | EMERGENCY ROOM VISIT NOTE ---
History Report prepared by Ivan: Keysha High Under the Supervision of: Dr. Tucker Valle M.D. First contact with patient: 00:16 Chief Complaint: FEVER Stated Complaint: FEVER OF OVER 101 ALL DAY S/P SURGERY History of Present Illness The patient is a 57 year old female who presents to the Emergency Room with complaints of a persistent fever that began earlier today. The patient was seen in the Emergency Department 3 days ago and had surgery because she broke her right femur, noting she had screws put in place. She reports that she had a catheter in place during her visit. She notes that she was discharged one day after her surgery and that her discharge papers said to come to the Emergency Department for further evaluation if her temperature was above 101 degrees Fahrenheit. The patient states that she has been having fevers of over 101 degrees Fahrenheit all day. She notes that she last took a Percocet 2 hours prior to arrival, noting it helped relieve her symptoms. She reports that she felt nauseous when she woke up, noting she did not vomit. The patient denies any current problems, but notes a history of urinary tract infections. She reports some coughing without shortness of breath, chest pain, syncope, palpitations. She has not history of DVT. She has no URI symptoms otherwise. Source of History: patient Onset: earlier today Position: other (global) Symptom Intensity: 101 degrees Quality: other (fever) Timing: other (persistent) Associated Symptoms: + nausea, No vomiting, No urinary symptoms Review of Systems See HPI for pertinent positives & negatives. A total of 10 systems reviewed and were otherwise negative. Past Medical & Surgical Medical Problems: (1) Anemia (2) Femur fracture, right (3) Mitral valve prolapse (4) Sepsis Family History Cancer Seizures Social History Smoking Status: Never Smoker Alcohol Use: occasionally Drug Use: none Occupation Status: employed Current/Historical Medications No Active Prescriptions or Reported Meds Allergies Coded Allergies: Codeine (Unverified Allergy, Unknown, UNKNOWN, 10/17/17) Nut Tree (Verified Allergy, Unknown, blisters in mouth, 10/17/17) Uncoded Allergies: SEAFOOD (Allergy, Unknown, violently ill, 10/17/17) Physical Exam Vital Signs Date Time Temp Pulse Resp B/P (MAP) Pulse Ox O2 Delivery O2 Flow Rate FiO2 10/17/17 04:08 39.0 101 18 104/60 97 10/17/17 03:49 38.9 104 18 99/60 99 10/17/17 03:35 39.2 93 20 99/59 97 10/17/17 03:18 38.2 98 18 95/60 98 10/17/17 03:10 38.7 104 18 102/63 100 Room Air 10/17/17 03:03 38.7 104 18 102/63 99 10/17/17 01:57 36.9 105 18 113/70 99 Room Air 10/17/17 00:54 100 10/17/17 00:38 108 20 104/60 98 Room Air 10/17/17 00:12 38.7 120 18 91/52 95 Room Air Physical Exam GENERAL: Patient is unwell appearing and in mild distress. HEENT: Pale conjunctiva. No acute trauma, normocephalic atraumatic, mucous membranes moist, no nasal congestion, no scleral icterus. NECK: No stridor, no adenopathy, no meningismus, trachea is midline. LUNGS: No dyspnea. Clear to auscultation and equal bilaterally. No wheeze, no rhonchi. HEART: Tachycardic rate and regular rhythm. No murmurs, rubs, gallops appreciated. ABDOMEN: Soft, nontender, bowel sounds positive, no masses appreciated, no peritonitis. BACK: No midline tenderness, no CVA tenderness EXTREMITIES: Right leg in long cast with some erythema of right posterior thigh. Positive cap refill in right toes. Normal motion all extremities, no cyanosis, no edema. NEUROLOGIC: Alert and oriented, no acute motor or sensory deficits, no focal weakness, cranial nerves grossly intact. SKIN: No rash, no jaundice, no diaphoresis. Medical Decision & Procedures ER Provider Diagnostic Interpretation: X ray results are stated below per my interpretation: Chest: 1 view: No infiltrate, no effusion, normal cardiac border. Laboratory Results 10/17/17 00:34 Red Blood Count 2.36, Mean Corpuscular Volume 94.1, Mean Corpuscular Hemoglobin 31.8, Mean Corpuscular Hemoglobin Concent 33.8, Mean Platelet Volume 8.7, Neutrophils (%) (Auto) 81.7, Lymphocytes (%) (Auto) 8.8, Monocytes (%) (Auto) 8.8, Eosinophils (%) (Auto) 0.2, Basophils (%) (Auto) 0.2, Neutrophils # (Auto) 5.37, Lymphocytes # (Auto) 0.58, Monocytes # (Auto) 0.58, Eosinophils # (Auto) 0.01, Basophils # (Auto) 0.01 10/17/17 00:34 Test 10/17/17 00:34 10/17/17 00:37 10/17/17 02:15 10/17/17 03:19 White Blood Count 6.57 K/uL (4.8-10.8) Red Blood Count 2.36 M/uL (4.2-5.4) Hemoglobin 7.5 g/dL (12.0-16.0) Hematocrit 22.2 % (37-47) Mean Corpuscular Volume 94.1 fL (80-100) Mean Corpuscular Hemoglobin 31.8 pg (25-34) Mean Corpuscular Hemoglobin Concent 33.8 g/dl (32-36) Platelet Count 125 K/uL (130-400) Mean Platelet Volume 8.7 fL (7.4-10.4) Neutrophils (%) (Auto) 81.7 % Lymphocytes (%) (Auto) 8.8 % Monocytes (%) (Auto) 8.8 % Eosinophils (%) (Auto) 0.2 % Basophils (%) (Auto) 0.2 % Neutrophils # (Auto) 5.37 K/uL (1.4-6.5) Lymphocytes # (Auto) 0.58 K/uL (1.2-3.4) Monocytes # (Auto) 0.58 K/uL (0.11-0.59) Eosinophils # (Auto) 0.01 K/uL (0-0.5) Basophils # (Auto) 0.01 K/uL (0-0.2) RDW Standard Deviation 44.2 fL (36.4-46.3) RDW Coefficient of Variation 12.8 % (11.5-14.5) Immature Granulocyte % (Auto) 0.3 % Immature Granulocyte # (Auto) 0.02 K/uL (0.00-0.02) Red Blood Cell Morphology Unremarkable Prothrombin Time 16.4 SECONDS (9.0-12.0) Prothromb Time International Ratio 1.6 (0.9-1.1) Anion Gap 7.0 mmol/L (3-11) Est Creatinine Clear Calc Drug Dose 52.9 ml/min Estimated GFR () 94.1 Estimated GFR (Non- 81.2 BUN/Creatinine Ratio 12.0 (10-20) Calcium Level 7.8 mg/dl (8.5-10.1) Magnesium Level 1.7 mg/dl (1.8-2.4) Total Bilirubin 0.5 mg/dl (0.2-1) Direct Bilirubin 0.1 mg/dl (0-0.2) Aspartate Amino Transf (AST/SGOT) 42 U/L (15-37) Alanine Aminotransferase (ALT/SGPT) 41 U/L (12-78) Alkaline Phosphatase 33 U/L (45-117) Total Protein 5.8 gm/dl (6.4-8.2) Albumin 2.7 gm/dl (3.4-5.0) Bedside Lactic Acid Venous 0.62 mmol/L (0.90-1.70) Urine Color YELLOW Urine Appearance CLEAR (CLEAR) Urine pH 7.0 (4.5-7.5) Urine Specific [place] 1.006 (1.000-1.030) Urine Protein NEG (NEG) Urine Glucose (UA) NEG (NEG) Urine Ketones NEG (NEG) Urine Occult Blood NEG (NEG) Urine Nitrite NEG (NEG) Urine Bilirubin NEG (NEG) Urine Urobilinogen NEG (NEG) Urine Leukocyte Esterase NEG (NEG) Urine WBC (Auto) 1-5 /hpf (0-5) Urine RBC (Auto) 0-4 /hpf (0-4) Urine Hyaline Casts (Auto) 0 /lpf (0-5) Urine Epithelial Cells (Auto) 5-10 /lpf (0-5) Urine Bacteria (Auto) NEG (NEG) Influenza Type A (RT-PCR) POS for Influ A (NEG) Influenza Type B (RT-PCR) Neg for Influ B (NEG) Laboratory results as reviewed by me. Medications Administered Medications (Trade) Dose Ordered Sig/Charly Route Start Time Stop Time Status Last Admin Dose Admin Sodium Chloride 1,000 ml @ 999 mls/hr Q1H1M STAT IV 10/17/17 00:26 10/17/17 01:26 DC 10/17/17 00:33 999 MLS/HR Piperacillin Sod/ Tazobactam Sod (Zosyn Iv) 4.5 gm NOW STAT IV 2/12/18 01:02 10/17/17 01:08 DC 10/17/17 01:21 4.5 GM Vancomycin HCl 1000 mg/Sodium Chloride 270 ml @ 125 mls/hr NOW STAT IV 10/17/17 01:02 10/17/17 03:11 DC 10/17/17 01:53 125 MLS/HR Oxycodone HCl (Roxicodone Immediate Rel Tab) 5 mg NOW STAT PO 10/17/17 03:40 10/17/17 03:41 DC 10/17/17 03:47 5 MG Acetaminophen (Tylenol Tab) 1,000 mg NOW STAT PO 10/17/17 03:40 10/17/17 03:41 DC 10/17/17 03:47 1,000 MG Magnesium Sulfate (Magnesium Sulfate) 1 gm STK-MED ONCE .ROUTE 10/17/17 04:02 10/17/17 04:03 DC 10/17/17 04:09 1 GM ED Course 2417: The patient was evaluated in room B10. A complete history and physical exam was performed. 0116: I reevaluated the patient, who was resting. Her heart rate and blood pressure are improving with fluid bolus. She verbally agreed to a blood transfusion. 0156: I reevaluated the patient, who was resting comfortably. She consented to a blood transfusion on paper. 0248: Discussed the patient's case with Sundeep Hanson. She would like me to order a flu PCR for the patient. The patient will be evaluated for further treatment and disposition. Medical Decision Differential: Viral, Pharyngitis, Cellulitis, Pneumonia, Influenza, Meningitis, Sepsis, Bacteremia, UTI/Pyelonephritis, Endocrine, Toxicologic, amongst other pathologies entertained. 57 yr old female with fevers, tachycardia and hypotension. Just had right femur fracture with OR 2 days ago. Sepsis protocol begun. BP rapidly improved and lactic acid normal. With HgB low, and improved vitals I held on giving further IV fluids deference to need for blood products. She was given broad spectrum abx as just had surgery. CXR clear and has no respiratory complaints nor chest pain. UA clear as well (just had mercer). Right leg in long splint which I am somewhat loath to remove given just placed in OR and she is not having significant pain nor evidence of arterial compromise. She does have some erythema of right upper posterior thigh which may be developing cellulitis , which abx ordered would cover anyways. I had prolonged discussion with patient about transfusion which she agrees to have done. Explained need to keep HgB up in setting of sepsis. INR is 1.6, however will not reverse given her risk of DVT as well as fact hgb has not dropped precipitously from the 8 it was a few days ago. Discussed case with hospitalist who will admit patient. After several hours in ED pts fever began rising, which happened to be during blood transfusion. She has no other symptoms of reaction to blood, is stable, breathing well without rash, thus I feel temp is likely secondary to infection she has, thus will continue transfusion, with close monitoring that she is already getting. I do not feel symptoms consistent with PE. She does not have meningitis. After discussion with hospitalist she asked I add on Flu test given having been in hospital, which did return positive for Flu A which may explain much of this as well. Medication Reconcilliation Current Medication List: was personally reviewed by me Blood Pressure Screening Patient's blood pressure: Low blood pressure Blood pressure disposition: Referred to PCP (Monitored by hospitalist) Consults Time Called: 024 Consulting Physician: Sundeep Hanson Returned Call: [phone] Discussed the patient's case with Sundeep Hanson. She would like me to order a flu PCR for the patient. The patient will be evaluated for further treatment and disposition. Impression Primary Impression: Sepsis Additional Impressions: Anemia Influenza A Critical Care I have personally spent greater than 35 minutes of critical care time in the direct management of this patient. This was a life/limb threatening event. This includes time spent evaluating patient, direct bedside care, chart review, placing orders, interpretation of diagnostic studies, discussion with consultants, patient, and family members, as well as other required patient management activities. This 35 minutes is in excess of all separately billable procedures. Scribe Attestation The scribe's documentation has been prepared under my direction and personally reviewed by me in its entirety. I confirm that the note above accurately reflects all work, treatment, procedures, and medical decision making performed by me. Departure Information Dispostion Home / Self-Care Prescriptions No Active Prescriptions or Reported Meds Referrals Juancho Manuel M.D.([facility]) (PCP) Forms HOME CARE DOCUMENTATION FORM, IMPORTANT VISIT INFORMATION Patient Instructions [facility] Problem Qualifiers
[2017-10-17 00:45] LABS: BASO % 0.2 %; BASO ABS # 0.01 K/uL (0-0.2); EOS % 0.2 %; EOS ABS # 0.01 K/uL (0-0.5); HEMATOCRIT 22.2 % (37-47); HEMOGLOBIN 7.5 g/dL (12.0-16.0); IG# 0.02 K/uL (0.00-0.02); LYMPH % 8.8 %; LYMPH ABS # 0.58 K/uL (1.2-3.4); MEAN CELL VOLUME 94.1 fL (80-100); MEAN CORPUSCULAR HEMOGLOBIN 31.8 pg (25-34); MEAN CORPUSCULAR HGB CONC 33.8 g/dl (32-36); MEAN PLATELET VOLUME 8.7 fL (7.4-10.4); MONO % 8.8 %; MONO ABS # 0.58 K/uL (0.11-0.59); NEUT % 81.7 %; NEUT ABS # 5.37 K/uL (1.4-6.5); PLATELET COUNT 125 K/uL (130-400); RED CELL DISTRIBUTION WIDTH CV 12.8 % (11.5-14.5); RED CELL DISTRIBUTION WIDTH SD 44.2 fL (36.4-46.3); WHITE BLOOD COUNT 6.57 K/uL (4.8-10.8)
[2017-10-17 00:52] LABS: INR 1.6 (0.9-1.1)
[2017-10-17] MEDS ORDERED: VANCOMYCIN INJ 1,000 MG in SODIUM CHLORIDE 0.9% 250ML 250 ML IV STA (01:02)
[2017-10-17] MEDS ORDERED: PIPERACILLIN/TAZOBACTAM 4.5 GM/100ML D5W IV STA (01:02)
[2017-10-17 01:06] LABS: ALBUMIN 2.7 gm/dl (3.4-5.0); CALCIUM 7.8 mg/dl (8.5-10.1); CREATININE 0.81 mg/dl (0.60-1.20); POTASSIUM 3.7 mmol/L (3.5-5.1)
[2017-10-17 01:09] LABS: TOTAL PROTEIN 5.8 gm/dl (6.4-8.2)
[2017-10-17] MEDS ORDERED: VANCOMYCIN CONSULT ACTIVE PRN (01:15)
[2017-10-17] MEDS ORDERED: MAGNESIUM SULFATE 1GM / D5W 1 GM in PREMIXED IN D5W 100 ML IV SCH (03:00)
[2017-10-17] MEDS ORDERED: ACETAMINOPHEN 500 MG TAB PO STA (03:40)
[2017-10-17] MEDS ORDERED: OXYCODONE HCL IR 5 MG TAB (IMMEDIATE RELEASE) PO STA (03:40)
[2017-10-17] MEDS ORDERED: MAGNESIUM SULFATE 1GM / D5W 1 GM BAG ONE ×3 (04:02→06:09)
[2017-10-17] MEDS ORDERED: SODIUM CHLORIDE 0.9% 1000ML 1,000 ML IV SCH (04:06)
[2017-10-17 04:12] LABS: INFLUENZA A PCR POS for Influ A (NEG); INFLUENZA B PCR Neg for Influ B (NEG)
[2017-10-17] MEDS ORDERED: ONDANSETRON INJ 2 MG/ML 2 ML VIAL IV PRN (04:15)
[2017-10-17] MEDS ORDERED: ACETAMINOPHEN 325 MG TAB PO PRN ×2 (04:15→16:00)
[2017-10-17] MEDS ORDERED: MoRPHine SULFATE 2 MG/ML CARP IV PRN (04:15)
[2017-10-17] MEDS ORDERED: OSELTAMIVIR PHOSPHATE 75 MG CAP PO SCH (04:15)
[2017-10-17] MEDS ORDERED: POLYETHYLENE (MIRALAX) 17 GM PACK PO PRN (04:15)
[2017-10-17] MEDS ORDERED: CMD2 PO (04:17)
--- NOTE | 2017-10-17 04:31 | History and Physical ---
History & Physical Date & Time of Service: Oct 17, 2017 at 04:17 Chief Complaint: Fever Of Over 101 All Day S/P Surgery Primary Care Physician: Juancho Manuel M.D.(MARIA ISABEL) History of Present Illness Source: patient, spouse, clinic records, hospital records 57 yo F s/p R femoral fracture repair on 10/14 with discharge from the hospital just yesterday presents with a cough and fever up to 103F at home. She denies any leg swelling or worsening of pain in her leg. She is anemic and getting one unit of blood in the ER for H/H 7.01/24. She does report some lightheadedness and nausea once this morning around 0730 but states it improved. She was fatigue and sleeping for most of the day. The fever was what brought her in. She denies any shortness of breath. Workup revealed she has flu A. Past Medical/Surgical History Medical Problems: (1) Mitral valve prolapse Status: Chronic (2) Right femoral fracture Permanent Comment: s/p repair Status: Chronic (3) Tibia/fibula fracture Permanent Comment: s/p repair Status: Chronic Family History Cancer Seizures Social History Smoking Status: Never Smoker Smokeless Tobacco Use: No Alcohol Use: none Drug Use: none Marital Status: Housing status: lives with significant other Occupational Status: employed Immunizations History of Influenza Vaccine: No History of Tetanus Vaccine?: Yes Tetanus Immunization Date: May 05, 2011 History of Pneumococcal: No History of Hepatitis B Vaccine: No Multi-Drug Resistant Organisms History of MDRO: No Allergies Coded Allergies: Codeine (Unverified Allergy, Unknown, UNKNOWN, 10/17/17) Nut Tree (Verified Allergy, Unknown, blisters in mouth, 10/17/17) Uncoded Allergies: SEAFOOD (Allergy, Unknown, violently ill, 10/17/17) Home Medications Scheduled Warfarin Sod (Coumadin), 4 MG PO DAILY Review of Systems At least ten systems were reviewed and negative except as indicated in the HPI. Physical Exam Vital Signs Date Time Temp Pulse Resp B/P (MAP) Pulse Ox O2 Delivery O2 Flow Rate FiO2 10/17/17 04:08 39.0 101 18 104/60 97 10/17/17 03:49 38.9 104 18 99/60 99 10/17/17 03:35 39.2 93 20 99/59 97 10/17/17 03:18 38.2 98 18 95/60 98 10/17/17 03:10 38.7 104 18 102/63 100 Room Air 10/17/17 03:03 38.7 104 18 102/63 99 10/17/17 01:57 36.9 105 18 113/70 99 Room Air 10/17/17 00:54 100 10/17/17 00:38 108 20 104/60 98 Room Air 10/17/17 00:12 38.7 120 18 91/52 95 Room Air General Appearance: WD/WN, no apparent distress Head: normocephalic, atraumatic Eyes: normal inspection, PERRL, EOMI, sclerae normal ENT: normal ENT inspection, hearing grossly normal, pharynx normal Neck: supple, no adenopathy, trachea midline Respiratory/Chest: chest non-tender, lungs clear, normal breath sounds, no respiratory distress, no accessory muscle use Cardiovascular: regular rate, rhythm, no edema, no gallop, no JVD, no murmur, normal peripheral pulses Abdomen/GI: normal bowel sounds, non tender, soft, no organomegaly Back: normal inspection Extremities/Musculoskelatal: + pertinent finding (full length cast on R leg, toes are ) Neurologic/Psych: wet press tender II-XII nml as tested, no motor/sensory deficits, alert, normal mood/affect, oriented x 3 Skin: normal color, warm/dry, no rash Diagnostics Laboratory Results 10/17/17 00:34 Red Blood Count 2.36, Mean Corpuscular Volume 94.1, Mean Corpuscular Hemoglobin 31.8, Mean Corpuscular Hemoglobin Concent 33.8, Mean Platelet Volume 8.7, Neutrophils (%) (Auto) 81.7, Lymphocytes (%) (Auto) 8.8, Monocytes (%) (Auto) 8.8, Eosinophils (%) (Auto) 0.2, Basophils (%) (Auto) 0.2, Neutrophils # (Auto) 5.37, Lymphocytes # (Auto) 0.58, Monocytes # (Auto) 0.58, Eosinophils # (Auto) 0.01, Basophils # (Auto) 0.01 10/17/17 00:34 Test 10/17/17 00:34 10/17/17 00:37 10/17/17 02:15 10/17/17 03:19 White Blood Count 6.57 K/uL (4.8-10.8) Red Blood Count 2.36 M/uL (4.2-5.4) Hemoglobin 7.5 g/dL (12.0-16.0) Hematocrit 22.2 % (37-47) Mean Corpuscular Volume 94.1 fL (80-100) Mean Corpuscular Hemoglobin 31.8 pg (25-34) Mean Corpuscular Hemoglobin Concent 33.8 g/dl (32-36) Platelet Count 125 K/uL (130-400) Mean Platelet Volume 8.7 fL (7.4-10.4) Neutrophils (%) (Auto) 81.7 % Lymphocytes (%) (Auto) 8.8 % Monocytes (%) (Auto) 8.8 % Eosinophils (%) (Auto) 0.2 % Basophils (%) (Auto) 0.2 % Neutrophils # (Auto) 5.37 K/uL (1.4-6.5) Lymphocytes # (Auto) 0.58 K/uL (1.2-3.4) Monocytes # (Auto) 0.58 K/uL (0.11-0.59) Eosinophils # (Auto) 0.01 K/uL (0-0.5) Basophils # (Auto) 0.01 K/uL (0-0.2) RDW Standard Deviation 44.2 fL (36.4-46.3) RDW Coefficient of Variation 12.8 % (11.5-14.5) Immature Granulocyte % (Auto) 0.3 % Immature Granulocyte # (Auto) 0.02 K/uL (0.00-0.02) Red Blood Cell Morphology Unremarkable Prothrombin Time 16.4 SECONDS (9.0-12.0) Prothromb Time International Ratio 1.6 (0.9-1.1) Anion Gap 7.0 mmol/L (3-11) Est Creatinine Clear Calc Drug Dose 52.9 ml/min Estimated GFR () 94.1 Estimated GFR (Non- 81.2 BUN/Creatinine Ratio 12.0 (10-20) Calcium Level 7.8 mg/dl (8.5-10.1) Magnesium Level 1.7 mg/dl (1.8-2.4) Total Bilirubin 0.5 mg/dl (0.2-1) Direct Bilirubin 0.1 mg/dl (0-0.2) Aspartate Amino Transf (AST/SGOT) 42 U/L (15-37) Alanine Aminotransferase (ALT/SGPT) 41 U/L (12-78) Alkaline Phosphatase 33 U/L (45-117) Total Protein 5.8 gm/dl (6.4-8.2) Albumin 2.7 gm/dl (3.4-5.0) Bedside Lactic Acid Venous 0.62 mmol/L (0.90-1.70) Urine Color YELLOW Urine Appearance CLEAR (CLEAR) Urine pH 7.0 (4.5-7.5) Urine Specific [place] 1.006 (1.000-1.030) Urine Protein NEG (NEG) Urine Glucose (UA) NEG (NEG) Urine Ketones NEG (NEG) Urine Occult Blood NEG (NEG) Urine Nitrite NEG (NEG) Urine Bilirubin NEG (NEG) Urine Urobilinogen NEG (NEG) Urine Leukocyte Esterase NEG (NEG) Urine WBC (Auto) 1-5 /hpf (0-5) Urine RBC (Auto) 0-4 /hpf (0-4) Urine Hyaline Casts (Auto) 0 /lpf (0-5) Urine Epithelial Cells (Auto) 5-10 /lpf (0-5) Urine Bacteria (Auto) NEG (NEG) Influenza Type A (RT-PCR) POS for Influ A (NEG) Influenza Type B (RT-PCR) Neg for Influ B (NEG) Date/Time Source Procedure Growth Status 10/17/17 00:34 Blood Blood Culture Pending Received Results Past 24 Hours Test 10/17/17 00:34 10/17/17 00:37 10/17/17 02:15 10/17/17 03:19 Range/Units White Blood Count 6.57 4.8-10.8 K/uL Red Blood Count 2.36 4.2-5.4 M/uL Hemoglobin 7.5 12.0-16.0 g/dL Hematocrit 22.2 37-47 % Mean Corpuscular Volume 94.1 80-100 fL Mean Corpuscular Hemoglobin 31.8 25-34 pg Mean Corpuscular Hemoglobin Concent 33.8 32-36 g/dl Platelet Count 125 130-400 K/uL Mean Platelet Volume 8.7 7.4-10.4 fL Neutrophils (%) (Auto) 81.7 % Lymphocytes (%) (Auto) 8.8 % Monocytes (%) (Auto) 8.8 % Eosinophils (%) (Auto) 0.2 % Basophils (%) (Auto) 0.2 % Neutrophils # (Auto) 5.37 1.4-6.5 K/uL Lymphocytes # (Auto) 0.58 1.2-3.4 K/uL Monocytes # (Auto) 0.58 0.11-0.59 K/uL Eosinophils # (Auto) 0.01 0-0.5 K/uL Basophils # (Auto) 0.01 0-0.2 K/uL RDW Standard Deviation 44.2 36.4-46.3 fL RDW Coefficient of Variation 12.8 11.5-14.5 % Immature Granulocyte % (Auto) 0.3 % Immature Granulocyte # (Auto) 0.02 0.00-0.02 K/uL Red Blood Cell Morphology Unremarkable Prothrombin Time 16.4 9.0-12.0 SECONDS Prothromb Time International Ratio 1.6 0.9-1.1 Sodium Level 138 136-145 mmol/L Potassium Level 3.7 3.5-5.1 mmol/L Chloride Level 102 98-107 mmol/L Carbon Dioxide Level 29 21-32 mmol/L Anion Gap 7.0 3-11 mmol/L Blood Urea Nitrogen 10 7-18 mg/dl Creatinine 0.81 0.60-1.20 mg/dl Est Creatinine Clear Calc Drug Dose 52.9 ml/min Estimated GFR () 94.1 Estimated GFR (Non- 81.2 BUN/Creatinine Ratio 12.0 10-20 Random Glucose 102 70-99 mg/dl Calcium Level 7.8 8.5-10.1 mg/dl Magnesium Level 1.7 1.8-2.4 mg/dl Total Bilirubin 0.5 0.2-1 mg/dl Direct Bilirubin 0.1 0-0.2 mg/dl Aspartate Amino Transf (AST/SGOT) 42 15-37 U/L Alanine Aminotransferase (ALT/SGPT) 41 12-78 U/L Alkaline Phosphatase 33 45-117 U/L Total Protein 5.8 6.4-8.2 gm/dl Albumin 2.7 3.4-5.0 gm/dl Bedside Lactic Acid Venous 0.62 0.90-1.70 mmol/L Urine Color YELLOW Urine Appearance CLEAR CLEAR Urine pH 7.0 4.5-7.5 Urine Specific [place] 1.006 1.000-1.030 Urine Protein NEG NEG Urine Glucose (UA) NEG NEG Urine Ketones NEG NEG Urine Occult Blood NEG NEG Urine Nitrite NEG NEG Urine Bilirubin NEG NEG Urine Urobilinogen NEG NEG Urine Leukocyte Esterase NEG NEG Urine WBC (Auto) 1-5 0-5 /hpf Urine RBC (Auto) 0-4 0-4 /hpf Urine Hyaline Casts (Auto) 0 0-5 /lpf Urine Epithelial Cells (Auto) 5-10 0-5 /lpf Urine Bacteria (Auto) NEG NEG Influenza Type A (RT-PCR) POS for Influ A NEG Influenza Type B (RT-PCR) Neg for Influ B NEG Microbiology Results 10/17/17 Blood Culture, Received Pending 10/17/17 Blood Culture, Received Pending Diagnostic Radiology CHEST ONE VIEW PORTABLE CLINICAL HISTORY: Fever. COMPARISON STUDY: Chest radiograph July 03, 2015. FINDINGS: There is no pneumothorax or pleural effusion. Linear left lower lung opacity likely reflects atelectasis. There is no consolidation to suggest pneumonia and there is no evidence for pulmonary edema. Mild S-shaped scoliosis is noted. IMPRESSION: No acute cardiopulmonary findings. EKG SR78 Impression Assessment and Plan 57 yo F presents with high fevers and cough, found to have flu A. 1. Sepsis 2/2 flu A-Vanc and Zosyn were started empirically in setting of postoperative sepsis. Will await CXR reading in am prior to DCing these. Tamiflu was started. IVF given. Blood given in ER. Lactate is normal. 2. Anemia 2/2 post-op state-replaced 1 Unit blood in ER. Obtain post- transfusion H/H. Defer to Ortho regarding the need for coumadin reversal after surgical site evaluation. (Spoke with Dr. Carrero this am who states that no further blood needed if Hct increased to 26. Post-tx H/H pending 3. s/p R femoral shaft fracture repair-cont pain medications PRN. Ortho consulted-at this time, not planning to open cast and examine the surgical wound. Monitor clinical progress on Tamiflu 4. Hypomagnesemia-replace IV and recheck. 5. Thrombocytopenia-poss related to consumption in setting of sepsis. Continues on coumadin, but will monitor closely and may want to consider holding if PLT<100 or still requiring blood. DVT proph-warfarin Full Code Dispo-telemetry DO Sundeep Covarrubias Hospitalist Level of Care Telemetry Resuscitation Status FULL RESUSCITATION VTE Prophylaxis VTE Risk Assessment Done? Y/N: Yes Risk Level: Moderate Given or contraindicated: Warfarin (Coumadin)
--- NOTE | 2017-10-17 07:01 | DIAGNOSTIC IMAGING REPORT ---
CHEST ONE VIEW PORTABLE CLINICAL HISTORY: Fever. COMPARISON STUDY: Chest radiograph July 03, 2015. FINDINGS: There is no pneumothorax or pleural effusion. Linear left lower lung opacity likely reflects atelectasis. There is no consolidation to suggest pneumonia and there is no evidence for pulmonary edema. Mild S-shaped scoliosis is noted. IMPRESSION: No acute cardiopulmonary findings. Electronically signed by: Oliver Arevalo M.D. 10/17/2017 7:00 AM Dictated Date/Time: 10/17/2017 6:59 AM
--- NOTE | 2017-10-17 07:47 | PROGRESS NOTE ---
DATE: 10/17/2017 The patient seen in the telemetry unit. At this point in time she is sitting up. She has no major pain. She denies shortness of breath. Presently she is afebrile. Neurovascular check right lower extremities within normal limits. Dressing clean, dry and intact. There is no ascending lymphangitis or subcutaneous air noted to palpation. She was admitted with the flu, but ruled out sepsis. Discussed with primary care doctor. At this point in time, suggest discontinuing antibiotics if there is no other obvious source other than the influenza A. She has a chest x-ray report which does not reveal any major issues. We will continue with monitoring. She did receive a unit of blood, which was based on likely normalization from her fracture were hematocrit dropped to 22, was 26 postop day 1. There is no active bleeding from GI, upper or lower source. Suggest continue Coumadin. Keep INR 1.8-2.2 and keep strict nonweightbearing of right lower extremity. We will follow while in the hospital.
[2017-10-17] MEDS ORDERED: OXYCODONE HCL IR 5 MG TAB (IMMEDIATE RELEASE) PO PRN (08:15)
[2017-10-17 08:17] LABS: HEMATOCRIT 24.6 % (37-47); HEMOGLOBIN 8.4 g/dL (12.0-16.0)
[2017-10-17] MEDS: OSELTAMIVIR PHOSPHATE SUSP 30 MG/5 ML UDP PO SCH ×2 (08:42→21:02)
[2017-10-17 14:04] LABS: HEMATOCRIT 24.8 % (37-47); HEMOGLOBIN 8.5 g/dL (12.0-16.0); MEAN CELL VOLUME 91.9 fL (80-100); MEAN CORPUSCULAR HEMOGLOBIN 31.5 pg (25-34); MEAN PLATELET VOLUME 8.4 fL (7.4-10.4); PLATELET COUNT 118 K/uL (130-400); RED CELL DISTRIBUTION WIDTH CV 13.9 % (11.5-14.5); WHITE BLOOD COUNT 4.88 K/uL (4.8-10.8)
[2017-10-17 14:05] LABS: MEAN CORPUSCULAR HGB CONC 34.3 g/dl (32-36)
[2017-10-17] MEDS ORDERED: KETOROLAC TROMETHAMINE 15 MG/ML VIAL IV PRN (15:45)
--- NOTE | 2017-10-17 15:52 | ORTHOPEDICS PROGRESS NOTE ---
DATE: 10/17/2017 SUBJECTIVE: Took the dressing down. At this point in time, there was no bleeding on the dressing, it was clean and dry, the wound is clean and dry. There is no sign of any cellulitis or any drainage of any concern. There is no subcutaneous crepitation. ASSESSMENT AND PLAN: Clean surgical wound. No active bleeding. Hematocrit drop was likely based on normalization and recent flu escalation. At this point, suggest actual management for viral disease. Can wean antibiotics at this point per medicine's discretion. Continue oral Tamiflu type treatment. We will order tylenol/Toradol 15 mg (x1 now and q. 6 hours p.r.n.) to help control temperature and potential body aches. We will also order some proton pump inhibitor prophylaxis for ulcer. We will not discharge her on any NSAIDs, based on need for Coumadin. Keep INR 1.8-2.2. MTDD
[2017-10-17] MEDS ORDERED: PANTOprazole SOD 40 MG TAB PO STA (15:59)
[2017-10-17] MEDS ORDERED: KETOROLAC TROMETHAMINE 15 MG/ML VIAL IV STA (16:01)
[2017-10-17] MEDS: ACETAMINOPHEN 325 MG TAB PO SCH (18:03)
--- NOTE | 2017-10-17 20:02 | Progress Note ---
Progress Note Date of Service Oct 17, 2017. Progress Note Subjective: patient denies chest pain or shortness of breath Physical Exam General Appearance: no apparent distress Head: normocephalic, atraumatic Eyes: normal inspection, ENT: normal ENT inspection, hearing grossly normal, pharynx normal Neck: supple, no adenopathy, trachea midline Respiratory/Chest: chest non-tender, lungs clear, normal breath sounds, no respiratory distress, no accessory muscle use Cardiovascular: regular rate, rhythm, no edema, no gallop, no JVD, no murmur, normal peripheral pulses Abdomen/GI: normal bowel sounds, non tender, soft, no organomegaly Back: normal inspection Extremities/Musculoskelatal: full length cast on R leg Neurologic/Psych: alert, normal mood/affect, oriented x 3 Skin: normal color, warm/dry, no rash 57 yo F presents with high fevers and cough, found to have flu A. History of recent R femoral shaft fracture repair, followed by orthopedics Initially was given Vancomycin and Zosyn empirically for sepsis. antibiotics stopped as likely influenza. blood cultures have been sent (2 sets x 2) Tamiflu was started and to be continued for 5 day total course Anemia and 1 unit of PRBC with CBC raised from 7.5 and stable around 8.5 Thrombocytopenia DVT prophylaxis -warfarin 1.6 on admission, continue home dose Coumadin, repeat INR strict nonweightbearing of right lower extremity as per orthopedics Full Code
[2017-10-17] MEDS: PANTOprazole SOD 40 MG TAB PO SCH (21:01)
[2017-10-17] MEDS: SENNA 8.6 MG TAB PO SCH (21:02)
[2017-10-17] MEDS: DOCUSATE SODIUM 100 MG CAP PO SCH (21:02)
[2017-10-18] MEDS: ACETAMINOPHEN 325 MG TAB PO SCH ×3 (00:25→11:49)
[2017-10-18 04:00] VITALS: BP 109/69; PULSE 79; TEMP 37; O2SAT 98
[2017-10-18 04:13] VITALS: O2SAT 98
[2017-10-18 07:44] VITALS: BP 96/60; PULSE 87; TEMP 37.2; O2SAT 95
[2017-10-18 07:52] LABS: INR 1.2 (0.9-1.1)
[2017-10-18] MEDS: SENNA 8.6 MG TAB PO SCH (08:55)
[2017-10-18] MEDS: PANTOprazole SOD 40 MG TAB PO SCH (08:55)
[2017-10-18] MEDS: DOCUSATE SODIUM 100 MG CAP PO SCH (08:55)
[2017-10-18] MEDS ORDERED: POLYETHYLENE (MIRALAX) 17 GM PACK PO SCH (09:00)
[2017-10-18] MEDS: OSELTAMIVIR PHOSPHATE SUSP 30 MG/5 ML UDP PO SCH (09:19)
--- NOTE | 2017-10-18 09:21 | Orthopedic Progress Note ---
Orthopedic Progress Note Date of Service Oct 18, 2017. Subjective Post OP Day: Inpatient admission day 1 Reports: feeling well, pain controlled w PO medications, Denies: complaints, chest pain, SOB, nausea / vomiting, light headedness, calf pain, using SURGICAL CODER Objective calves soft nontender, N/V intact, splint C/D/I, capillary refill less than 2 sec., dressing C/D/I, A&O x3, toes mobile, CMS intact Date Time Temp Pulse Resp B/P (MAP) Pulse Ox O2 Delivery O2 Flow Rate FiO2 10/18/17 08:00 Room Air 10/18/17 07:44 37.2 87 18 96/60 (72) 95 Room Air 10/18/17 04:13 98 Room Air 10/18/17 04:00 37.0 79 14 109/69 (82) 98 Room Air 10/17/17 23:30 98 Room Air 10/17/17 22:51 37.1 74 14 102/63 (76) 98 Room Air 10/17/17 19:15 37.0 99 18 104/65 (78) 97 Room Air 10/17/17 18:30 37.0 10/17/17 15:47 38.0 93 18 94/48 (63) 99 Room Air 10/17/17 13:42 37.8 95 16 96/59 (71) 96 Room Air 10/17/17 13:40 Room Air 10/17/17 13:14 38.2 101 19 98 10/17/17 11:59 38.2 101 19 122/63 (82) 98 Room Air Laboratory Results 24 Hours: Test 10/17/17 13:43 10/18/17 07:20 Hematocrit 24.8 % Hemoglobin 8.5 g/dL Prothromb Time International Ratio 1.2 Prothrombin Time 12.5 SECONDS Assessment & Plan Assessment: Influenza type A 4 days s/p ORIF Right distal femur fracture Plan: Cont NWB on Rt LE with immobilizer and walker assistance OOB to chair Cont PO pain meds PT/OT while inpatient Cont to follow medically INR goal of 1.8-2.2 with PO Coumadin Keep splint in place
[2017-10-18] MEDS ORDERED: WARFARIN SOD 6 MG TAB PO ONE (10:00)
--- NOTE | 2017-10-18 12:24 | PROGRESS NOTE ---
DATE: 10/18/2017 Follow up of her right distal femur fracture. At this point in time, she has been afebrile with T-max of 37.2 over the last 18 hours. Her splint is clean, dry and intact. She has no pain. Neurovascular check distally normal. INR was subtherapeutic 1.2. Coumadin 6 mg ordered. At this point in time, patient can be discharged per medicine and treatment of influenza. She will follow up with me as previously arranged for staple removal in roughly 2 weeks. Discharged on 4 mg Coumadin daily. Check INR on . MTDD
--- NOTE | 2017-10-18 13:37 | Progress Note ---
Subjective Date of Service: Oct 18, 2017. Subjective Pt evaluation today including: conversation w/ patient, physical exam, lab review, review of studies, review of inpatient medication list Saw/examined the patient in room 359 She has a mild residual cough, which has been improving. States she feels better once she started getting Tamiflu. Last documented fever was on 10/17. No nausea/vomiting, good PO intake. Problem List Medical Problems: (1) Fracture of distal femur Status: Acute (2) Influenza A Status: Acute Review of Systems Constitutional: + fever, + chills, No weakness, No fatigue Respiratory: + cough, No sputum, No wheezing, No shortness of breath, No dyspnea on exertion, No dyspnea at rest, No hemoptysis Cardiac: No chest pain, No edema, No palpitations Musculoskeletal: No joint pain Medications Current Inpatient Medications Medications (Trade) Dose Ordered Sig/Charly Route Start Time Stop Time Status Last Admin Dose Admin Acetaminophen (Tylenol Tab) 650 mg Q4H PRN PO 10/17/17 04:15 11/16/17 04:14 10/17/17 11:40 650 MG Ondansetron HCl (Zofran Inj) 4 mg Q6H PRN IV 10/17/17 04:15 11/16/17 04:14 Morphine Sulfate (MoRPHine SULFATE INJ) 2 mg Q4H PRN IV 10/17/17 04:15 10/31/17 04:14 Polyethylene (Miralax Powder Packet) 17 gm DAILY PRN PO 10/17/17 04:15 11/16/17 04:14 Oseltamivir Phosphate (Tamiflu Susp) 30 mg BID PO 10/17/17 09:00 10/22/17 08:59 10/18/17 09:19 30 MG Oxycodone HCl (Roxicodone Immediate Rel Tab) 5 mg Q3H PRN PO 10/17/17 08:15 10/31/17 08:14 Ketorolac Tromethamine (Toradol Inj) 15 mg Q6H PRN IV 10/17/17 15:45 10/22/17 15:44 Pantoprazole Sodium (Protonix Tab) 40 mg BID PO 10/17/17 21:00 10/21/17 09:01 10/18/17 08:55 40 MG Polyethylene (Miralax Powder Packet) 17 gm DAILY PO 10/18/17 09:00 11/17/17 08:59 10/18/17 08:55 17 GM Docusate Sodium (coLACE CAP) 100 mg BID PO 10/17/17 21:00 11/16/17 20:59 10/18/17 08:55 100 MG Senna (Senokot Tab) 8.6 mg BID PO 10/17/17 21:00 11/16/17 20:59 10/18/17 08:55 8.6 MG Objective Vital Signs Date Time Temp Pulse Resp B/P (MAP) Pulse Ox O2 Delivery O2 Flow Rate FiO2 10/18/17 08:00 Room Air 10/18/17 07:44 37.2 87 18 96/60 (72) 95 Room Air 10/18/17 04:13 98 Room Air 10/18/17 04:00 37.0 79 14 109/69 (82) 98 Room Air 10/17/17 23:30 98 Room Air 10/17/17 22:51 37.1 74 14 102/63 (76) 98 Room Air 10/17/17 19:15 37.0 99 18 104/65 (78) 97 Room Air 10/17/17 18:30 37.0 10/17/17 15:47 38.0 93 18 94/48 (63) 99 Room Air 10/17/17 13:42 37.8 95 16 96/59 (71) 96 Room Air 10/17/17 13:40 Room Air Physical Exam General Appearance: no apparent distress Respiratory/Chest: chest non-tender, lungs clear, normal breath sounds, no respiratory distress, no accessory muscle use Cardiovascular: regular rate, rhythm, no edema, no murmur Extremities: + pertinent finding (R leg is wrapped) Neurologic/Psychiatric: no motor/sensory deficits, alert, normal mood/affect Laboratory Results Last 24 Hours Test 10/17/17 13:43 10/18/17 07:20 White Blood Count 4.88 K/uL Red Blood Count 2.70 M/uL Hemoglobin 8.5 g/dL Hematocrit 24.8 % Mean Corpuscular Volume 91.9 fL Mean Corpuscular Hemoglobin 31.5 pg Mean Corpuscular Hemoglobin Concent 34.3 g/dl RDW Standard Deviation 47.0 fL RDW Coefficient of Variation 13.9 % Platelet Count 118 K/uL Mean Platelet Volume 8.4 fL Prothrombin Time 12.5 SECONDS Prothromb Time International Ratio 1.2 Assessment and Plan This is a 57 year old female with a PMH of recent femoral fracture surgery on 10/14, presented to the hospital with a fever and subsequently found to be positive for Influenza A. Sepsis secondary to Influenza A presented with fevers and tachycardia on admission found to be positive for Influenza A initially started on Vanc + Zosyn these were discontinued when no bacterial infection was noted Influenza A was positive and she was started on Tamiflu, has received three doses of it will d/c home today (10/18) on Tamiflu and Tylenol PRN for fevers Recent R Femoral Fracture Repair on 10/14, POD # 4 appreciate surgical input for now, continue Coumadin (dose increased to 6mg) with a goal INR of around 2 home health is already in place, to check INR on Tuesday (10/21) Post-operative acute blood loss anemia Hgb on presentation was 7.5 s/p one unit pRBC, Hgb up to 8.5 monitor H/H as outpatient Thrombocytopenia should have outpatient CBC to monitor platelets DVT ppx Coumadin FULL CODE
[2017-10-18] MEDS ORDERED: TMFUDL30 PO (13:44)
[2017-10-18] MEDS ORDERED: CMD2 PO (13:44)
[2017-10-18] MEDS ORDERED: SENN-65 PO (13:44)
--- NOTE | 2017-10-18 13:46 | Discharge Instructions ---
Discharge Instructions Date of Service Oct 18, 2017. Admission Reason for Admission: Anemia, Sepsis Discharge Discharge Diagnosis / Problem: Sepsis secondary to Influenza A. Anemia Discharge Goals Goal(s): Decrease discomfort, Improve function, Diagnostic testing, Therapeutic intervention Activity Recommendations Activity Limitations: resume your previous activity . Instructions / Follow-Up Instructions / Follow-Up Please follow-up with Dr. Manuel on October 19 at 11:05AM Please follow-up with orthopedic surgery as scheduled * You will be discharged with Tamiflu - take 5mL twice a day for 7 more doses * Take 6mg of Coumadin instead of 4mg. Have home health nursing check the INR on October 21 * You should have bloodwork done as an outpatient (CBC) next week to check hemoglobin and platelet levels Current Hospital Diet Patient's current hospital diet: Low Lactose Diet Discharge Diet Recommended Diet: Low Lactose Diet Pending Studies Studies pending at discharge: no Medical Emergencies . Who to Call and When: Medical Emergencies: If at any time you feel your situation is an emergency, please call 911 immediately. . Non-Emergent Contact Non-Emergency issues call your: Primary Care Provider Call Non-Emergent contact if: temperature is above 101.5 . . "Provider Documentation" section prepared by Afshan Chavez. . VTE Core Measure Inpt VTE Proph given/why not?: Warfarin (Coumadin)
--- NOTE | 2017-10-18 13:49 | Discharge Summary ---
Discharge Summary Date of Service Oct 18, 2017. Discharge Summary Admission Date: Oct 17, 2017 at 02:54 Discharge Date: Oct 18, 2017 Discharge Disposition: Home with services Principal Diagnosis: Sepsis secondary to Influenza A Acute post-operative blood loss anemia s/p 1 unit of packed red blood cells Recent R Femoral Fracture repair Medication Reconciliation New Medications: Senna/Docusate Sod (Senokot S) 1 Tab Tab 1 TAB PO DAILY PRN for Constipation for 30 Days, #30 TAB Oseltamivir Phosphate (Tamiflu) 6 Mg/Ml Tricia 30 MG PO BID for 3 Days, #35 ML Changed Medications: Warfarin Sod (Coumadin) 2 Mg Tab 6 MG PO DAILY for 30 Days, #90 TAB (Changed from: 4 MG) Admission Information HPI (per Admitting provider): 57 yo F s/p R femoral fracture repair on 10/14 with discharge from the hospital just yesterday presents with a cough and fever up to 103F at home. She denies any leg swelling or worsening of pain in her leg. She is anemic and getting one unit of blood in the ER for H/H 7.01/24. She does report some lightheadedness and nausea once this morning around 0730 but states it improved. She was fatigue and sleeping for most of the day. The fever was what brought her in. She denies any shortness of breath. Workup revealed she has flu A. Physical Exam (per Admitting): General Appearance: WD/WN, no apparent distress Head: normocephalic, atraumatic Eyes: normal inspection, PERRL, EOMI, sclerae normal ENT: normal ENT inspection, hearing grossly normal, pharynx normal Neck: supple, no adenopathy, trachea midline Respiratory/Chest: chest non-tender, lungs clear, normal breath sounds, no respiratory distress, no accessory muscle use Cardiovascular: regular rate, rhythm, no edema, no gallop, no JVD, no murmur , normal peripheral pulses Abdomen/GI: normal bowel sounds, non tender, soft, no organomegaly Back: normal inspection Extremities/Musculoskelatal: + pertinent finding (full length cast on R leg , toes are ) 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 Sepsis secondary to Influenza A presented with fevers and tachycardia on admission found to be positive for Influenza A initially started on Vanc + Zosyn these were discontinued when no bacterial infection was noted Influenza A was positive and she was started on Tamiflu, has received three doses of it will d/c home today (10/18) on Tamiflu and Tylenol PRN for fevers Recent R Femoral Fracture Repair on 10/14, POD # 4 appreciate surgical input for now, continue Coumadin (dose increased to 6mg) with a goal INR of around 2 home health is already in place, to check INR on Tuesday (10/21) Post-operative acute blood loss anemia Hgb on presentation was 7.5 s/p one unit pRBC, Hgb up to 8.5 monitor H/H as outpatient Thrombocytopenia should have outpatient CBC to monitor platelets DVT ppx Coumadin FULL CODE Total time spent on discharge = 40 minutes This includes examination of the patient, discharge planning, medication reconciliation, and communication with other providers. Discharge Instructions Please follow-up with Dr. Manuel on October 19 at 11:05AM Please follow-up with orthopedic surgery as scheduled * You will be discharged with Tamiflu - take 5mL twice a day for 7 more doses * Take 6mg of Coumadin instead of 4mg. Have home health nursing check the INR on October 21 * You should have bloodwork done as an outpatient (CBC) next week to check hemoglobin and platelet levels
[2017-10-18 14:09] VITALS: BP 96/60; PULSE 87; TEMP 37.2; O2SAT 95
[2017-10-18] MEDS ORDERED: WARFARIN SOD 2 MG TAB PO SCH (16:00)
== END 2017-10-18 15:14 | disposition home health service (06) | DRG 872 ==
LOC: C.EDB 00:09 → C.2E 02:54 → CANRESERV 03:43 → ENRESERV 03:43 → EDBEDREQ 04:36 → ENRESERV 05:38 → C.MSW 13:37
PROVIDERS: ADMIT Hospitalist; ATTEND Hospitalist
DX: A41.89 Other specified sepsis (principal); D62 Acute posthemorrhagic anemia; S72.461A Displaced supracondylar fracture with intracondylar extension of lower end of right femur, initial encounter for closed fracture; J10.1 Influenza due to other identified influenza virus with other respiratory manifestations; I34.1 Nonrheumatic mitral (valve) prolapse; D69.6 Thrombocytopenia, unspecified; E83.42 Hypomagnesemia; Z80.9 Family history of malignant neoplasm, unspecified; Z82.0 Family history of epilepsy and other diseases of the nervous system; Z88.5 Allergy status to narcotic agent; Z91.013 Allergy to seafood; W00.0XXA Fall on same level due to ice and snow, initial encounter

== ENCOUNTER → 2017-10-21 | Outpatient (CLI) | payer OTHER ==
[~2017-10-21] MED LIST: CMD2 PO; SENN-65 PO; TMFUDL30 PO
== END | disposition home or self-care (01) ==
LOC: C.LABSPEC 14:02
PROVIDERS: ATTEND Nurse Practitioner Family
DX: Z51.81 Encounter for therapeutic drug level monitoring (principal); Z79.01 Long term (current) use of anticoagulants

== ENCOUNTER → 2017-11-14 | Outpatient (CLI) | payer OTHER | END | disposition home or self-care (01) | LOC: C.RDSM 09:00 | PROVIDERS: ATTEND Physical Medicine & Rehabilitation Sports Medicine | DX: S72.401A Unspecified fracture of lower end of right femur, initial encounter for closed fracture (principal); X58.XXXA Exposure to other specified factors, initial encounter ==

== ENCOUNTER → 2017-12-12 | Outpatient (CLI) | payer OTHER ==
[~2017-12-12] MED LIST changes: -SENN-65 PO
== END | disposition home or self-care (01) ==
LOC: C.RDSM 12:46
PROVIDERS: ATTEND Physical Medicine & Rehabilitation Sports Medicine
DX: S72.462D Displaced supracondylar fracture with intracondylar extension of lower end of left femur, subsequent encounter for closed fracture with routine healing (principal); X58.XXXD Exposure to other specified factors, subsequent encounter

== ENCOUNTER → 2018-04-03 | Outpatient (CLI) | payer OTHER | END | disposition home or self-care (01) | LOC: C.RDSM 11:28 | PROVIDERS: ATTEND Physical Medicine & Rehabilitation Sports Medicine | DX: S72.401A Unspecified fracture of lower end of right femur, initial encounter for closed fracture (principal); X58.XXXA Exposure to other specified factors, initial encounter ==